=== PATIENT | female | born 1960 | race Hispanic/Latino ===

== ENCOUNTER 2018-02-13 12:49 | Outpatient (CLI) | payer BC | END 2018-02-13 12:50 | disposition home or self-care (01) | LOC: BICMAMMO 12:49 | PROVIDERS: ATTEND Family Medicine | DX: Z12.31 Encounter for screening mammogram for malignant neoplasm of breast (principal); R92.1 Mammographic calcification found on diagnostic imaging of breast | CPT/HCPCS: 77063; 77067 ==

== ENCOUNTER 2018-04-07 13:32 | Outpatient (CLI) | payer BC ==
--- NOTE | 2018-04-07 16:25 | MRI ---
MRI CERVICAL SPINE: Date: 04-07-18 Provided Clinical History: Cervical stenosis, neck pain radiating into bilateral shoulders and arms. FINDINGS: Comparison is made with a 01-20-13. There are post-operative changes of ACDF at C5-6. Cervical alignment appears normal. Regional marrow signal unaffected by metallic susceptibility artifact appears normal. The visualized posterior fossa, cervicomedullary junction, and cervical spine cord demonstrate normal signal and morphology. C2-3: There is no significant central canal or foraminal narrowing. C3-4: There is bilateral facet arthritis and uncinate process hypertrophy as well as a broad based di sc bulge without significant central canal or foraminal narrowing apparent. C4-5: There is no significant central canal or foraminal narrowing apparent. C5-6: There is no significant central canal or foraminal narrowing apparent. C6-7: There is bilateral uncinate process hypertrophy without significant central canal or foraminal narrowing apparent. C7-T1: There is no significant central canal or foraminal narrowing apparent. IMPRESSION: Interval post-operative changes of ACDF at C5-6. No significant central canal or foraminal narrowing apparent. POS: [facility]
--- NOTE | 2018-04-07 16:51 | MRI ---
MRI LUMBAR SPINE WITHOUT CONTRAST: 04/07/18 HISTORY: Lumbar stenosis. COMPARISON: MRI lumbar spine 03/23/13. FINDINGS: There is a T2 hyperintensity of the posterior cortex interpolar right kidney likely a cyst. No hydron ephrosis. The aortoiliac contour is nonaneurysmal. There is no retroperitoneal adenopathy. The conus medullaris terminates at the inferior L1 end plate. Levels are as follows: L1-2: Mild disc desiccation. Moderate facet arthropathy. There is a right paracentral and central pos terior disc osteophyte complex at the annular fissure. There is minimal narrowing of the thecal sac a lthough the spinal canal still measures over 1 cm. There is a hemangioma within the L2 posterior vertebral body. L2-3: Mild circumferential disc bulge. There is associated bilateral paracentral and subforaminal and lateral recess posterior disc osteophyte complexes. Moderate bilateral neural foraminal narrowing. S siena canal measures approximately 8 mm. Moderate to severe left and moderate right sided facet arthr opathy. There is abutment of the left exiting nerve root. Majority of the disc extrusion and posterio r margin of the L2 vertebral body has been resorbed. L3-4: Mild circumferential disc bulge. Mild facet arthropathy. Bilateral subforaminal and lateral rec ess small posterior disc osteophyte complexes. Mild left and no significant right sided neural forami nal narrowing. L4-5: There is a small bilateral subforaminal posterior disc osteophyte complexes. Moderate to severe bilateral facet arthropathy. A subsequent moderate bilateral neural foraminal narrowing. L5-S1: Mild disc desiccation. There is a central annular fissure. Moderate to severe facet arthropath y. There is subsequent moderate bilateral neural foraminal narrowing and degenerative hypertrophic fa cet changes. IMPRESSION: Mild to moderate spondylosis as described above. POS: [facility]
--- NOTE | 2018-04-07 17:08 | MRI ---
MRI OF THE RIGHT KNEE WITH AND WITHOUT IV CONTRAST: DATE: 04/07/2018. PROVIDED CLINICAL HISTORY: Right knee cyst. FINDINGS: Comparison is made with the examination performed 05/04/2013. The cystic structure previously noted involving the right lateral gastrocnemius recess is redemonstra constantino, appearing smaller than on the prior examination. No associated contrast enhancement is seen. T here are no adjacent bone marrow changes. The amount of fluid within the knee joint appears physiolo gic. While this examination was not optimized for assessment for internal derangement, there is no d efinite evidence for such. IMPRESSION: Benign synovial/ganglion cyst is noted at the posterior-lateral aspect of the right knee. POS: [facility]
== END 2018-04-07 13:33 | disposition home or self-care (01) ==
LOC: BICMRI 13:32
PROVIDERS: ATTEND Physical Medicine & Rehabilitation
DX: M48.02 Spinal stenosis, cervical region (principal); M48.061 Spinal stenosis, lumbar region without neurogenic claudication; M25.861 Other specified joint disorders, right knee; M47.896 Other spondylosis, lumbar region; M47.897 Other spondylosis, lumbosacral region; Z98.1 Arthrodesis status
CPT/HCPCS: 72141; 72148

== ENCOUNTER 2018-04-23 10:14 | Outpatient (CLI) | payer BC ==
--- NOTE | 2018-04-23 12:46 | ULT ---
HEPATIC ULTRASOUND: HISTORY: Hepatitis C. FINDINGS: Real-time imaging of the liver shows a normal appearing gallbladder. The common duct is 2 mm. The t echnologist reports a negative ultrasound Mckinney sign. The liver is 15 cm in length and shows no mas s. The spleen measures 8.9 cm. On Doppler evaluation with spectral analysis, a normal flow pattern is shown within the liver. IMPRESSION: Unremarkable hepatic ultrasound. POS: [facility]
== END 2018-04-23 10:15 | disposition home or self-care (01) ==
LOC: BICULT 10:14
PROVIDERS: ATTEND Internal Medicine Gastroenterology
DX: R89.5 Abnormal microbiological findings in specimens from other organs, systems and tissues (principal)
CPT/HCPCS: 76705

== ENCOUNTER 2018-12-23 22:41 | Emergency (ER) | payer BC, SELFPAY ==
[2018-12-23 23:13] LABS: Bilirubin Negative (Negative); Clarity Slightly Cloudy (Clear); Leukocyte Unable to Interpret (Negative); Protein, Urine (Dipstick) 30 mg/dL (Neg-Trace)
[2018-12-23 23:14] LABS: Blood, Urine Unable to Interpret (Negative); Glucose, Urine (Dipstick) Unable to Interpret mg/dL (Negative); Nitrite Unable to Interpret (Negative); Urobilinogen UNABLE TO INTERPRET mg/dL (Less than 2)
[2018-12-23 23:15] LABS: #Basophils 0.2 thou/uL (0.0-0.2); #Eosinphils 0.2 thou/uL (0.0-0.7); #Lymphocytes 4.1 thou/uL (1.20-3.40); #Monocytes 0.9 thou/uL (0.11-0.59); #Neutrophils 6.1 thou/uL (1.40-6.50); %Basophils 1.4 % (0.0-1.0); %Eosinophils 1.5 % (0.0-10.0); %Lymphocytes 35.6 % (21.0-51.0); %Monocytes 8.1 % (0.0-10.0); %Neutrophils 53.4 % (42.0-75.0); Hemoglobin 14.3 g/dL (12.0-16.0); Mean Corpuscular HGB CONC 35.2 g/dL (32.0-36.0); Mean Corpuscular Hemoglobin 32.9 pg (27.0-31.0); Mean Corpuscular Volume 93.4 fL (78.0-98.0); Mean Platelet Volume 10.3 fL (7.4-10.4); Platelet Count 206 thou/uL (130-400); RBC Distribution Width 11.5 % (11.5-14.5); Red Blood Cell (RBC) Count 4.33 mill/uL (4.20-5.40); White Blood Cell (WBC) Count 11.5 thou/uL (4.8-10.8)
[2018-12-23 23:17] LABS: Bacteria/HPF None Seen HPF (None Seen); Squamous Epithelial 0-3 HPF (0-3)
[2018-12-23 23:28] LABS: ALT (SGPT) 14 U/L (8-55); AST (SGOT) 13 U/L (5-34); Albumin 4.3 g/dL (3.5-5.0); Alkaline Phosphatase 143 U/L (40-150); Anion Gap 13 mmol/L (10-20); BUN (Urea Nitrogen) 11 mg/dL (9.8-20.1); Bilirubin, Total 0.2 mg/dL (0.2-1.2); Calc. Creatinine Clearance 0 mL/min (70-130); Calcium 9.8 mg/dL (7.8-10.44); Carbon Dioxide 27 mmol/L (22-29); Chloride 106 mmol/L (98-107); Estimated GFR-MDRD 80; Globulin 3.3 g/dL (2.4-3.5); Glucose 81 mg/dL (70-105); Lipase 15 U/L (8-78); Potassium 3.9 mmol/L (3.5-5.1); Protein, Total 7.6 g/dL (6.0-8.3); Sodium 142 mmol/L (136-145)
--- NOTE | 2018-12-23 23:33 | CT ---
CT Stone Protocol: 12/23/2018 11:04 PM HISTORY: Right flank pain COMPARISON: 10/31/2015 TECHNIQUE: Multiple contiguous axial images were obtained and a CT of the abdomen and pelvis without IV contrast . Coronal reformats were performed. FINDINGS: This examination is limited for the evaluation of solid organs and vascular structures due to the lac k of intravenous contrast. Lower Chest: Calcified granulomas in the lung bases. Abdomen: Liver: within normal limits. Bile Ducts: Normal caliber. Gallbladder: No calcified gallstones. Normal caliber wall. Pancreas: within normal limits. Spleen: within normal limits. Adrenals: within normal limits. Kidneys: within normal limits. Pelvis: Reproductive Organs: Status post hysterectomy. Ureters: within normal limits. Bladder: within normal limits. Bowel: Normal caliber. Normal appendix. Mesenteric Lymph Nodes: No enlarged mesenteric lymph nodes. Peritoneum: No ascites or free air, no fluid collection. Vessels: Atherosclerotic calcifications in the aorta Retroperitoneum: within normal limits. Abdominal Wall: within normal limits. Bones: Degenerative changes in the spine. IMPRESSION: No evidence of acute intraabdominal or pelvic abnormality.
== END 2018-12-24 00:26 | disposition home or self-care (01) ==
LOC: SCSER 22:41
DX: N30.90 Cystitis, unspecified without hematuria (principal); F41.9 Anxiety disorder, unspecified; F32.9 Major depressive disorder, single episode, unspecified; F17.210 Nicotine dependence, cigarettes, uncomplicated; J45.909 Unspecified asthma, uncomplicated; Z79.899 Other long term (current) drug therapy
CPT/HCPCS: 74176; 80053; 81003; 81015; 83690; 85025; 96360

== ENCOUNTER 2019-03-15 12:16 | Outpatient (CLI) | payer BC ==
--- NOTE | 2019-03-15 12:54 | RAD ---
4 views of the lumbar spine: 03/15/2019 COMPARISON: None HISTORY: Lumbar radiculopathy, bilateral lower extremity radiculopathy, right greater than left FINDINGS: The lumbar pedicles are intact on frontal imaging. The neutral lateral examination demonstr ates mild anterolisthesis of L4 on L5 measuring 3-4 mm. There is facet hypertrophy at L3-4, L4-5, and L5-S1. Flexion imaging demonstrates increased anterolisthesis at L4-5, measuring approximately 7 mm. The anterolisthesis at L4-5 decreases to approximately 3-4 mm with extension. No acute osseous abnormality. IMPRESSION: Multilevel lower lumbar spine degenerative change. There is anterolisthesis at L4-5, shima uring up to 7 mm with flexion.
== END 2019-03-15 12:17 | disposition home or self-care (01) ==
LOC: BICRAD 12:16
PROVIDERS: ATTEND Neurological Surgery
DX: M47.26 Other spondylosis with radiculopathy, lumbar region (principal); M43.16 Spondylolisthesis, lumbar region
CPT/HCPCS: 72110

== ENCOUNTER 2019-03-16 12:57 | Outpatient (CLI) | payer BC ==
--- NOTE | 2019-03-16 13:34 | MMO ---
Bilateral MAMMO Bilat Screen DDI+BECKY. CLINICAL HISTORY: Patient is 58 years old and is seen for screening. The patient has no family history of breast cancer. The patient has no personal history of cancer. VIEWS: The views performed were: bilateral craniocaudal with tomosynthesis and bilateral mediolateral oblique with tomosynthesis. FILMS COMPARED: The present examination has been compared to prior imaging studies performed at [facility] on 09/03/2005, 07/25/2010, 02/03/2012 and 02/13/2018. This study has been interpreted with the assistance of computer-aided detection. MAMMOGRAM FINDINGS: There are scattered fibroglandular densities. There are stable benign appearing calcifications seen in both breasts. There are no suspicious masses, suspicious calcifications, or new areas of architectural distortion. IMPRESSION: THERE IS NO MAMMOGRAPHIC EVIDENCE OF MALIGNANCY. A ROUTINE FOLLOW-UP MAMMOGRAM IN 1 YEAR IS RECOMMENDED. THE RESULTS OF THIS EXAM WERE SENT TO THE PATIENT. ACR BI-RADS Category 2 - Benign finding MAMMOGRAPHY NOTE: 1. A negative mammogram report should not delay a biopsy if a dominant of clinically suspicious mass is present. 2. Approximately 10% to 15% of breast cancers are not detected by mammography. 3. Adenosis and dense breasts may obscure an underlying neoplasm. Reported by: JACQUIE MARTIN MD Electonically Signed: [id number]
== END 2019-03-16 12:58 | disposition home or self-care (01) ==
LOC: BICMAMMO 12:57
PROVIDERS: ATTEND Family Medicine
DX: Z12.31 Encounter for screening mammogram for malignant neoplasm of breast (principal)
CPT/HCPCS: 77063; 77067

== ENCOUNTER 2019-05-07 13:00 | Inpatient (IN) | payer BC ==
[2019-06-11 11:28] VITALS: BMI 29.8
[2019-06-14] MEDS ORDERED: Sodium Chloride 0.9% 20 ML ONE (06:14)
[2019-06-14] MEDS ORDERED: Thrombin 5000 UNITS/5 ML VIAL ONE (06:14)
[2019-06-14] MEDS ORDERED: Bupivacaine PF 0.5% 30 ML VIAL ONE (06:14)
[2019-06-14] MEDS ORDERED: Midazolam HCl 2 mg/2 ml Vial ONE (06:43)
[2019-06-14] MEDS ORDERED: Albumin 5% 500 ML ONE (06:44)
[2019-06-14] MEDS ORDERED: Fentanyl 250 MCG/5 ML VIAL ONE (06:44)
[2019-06-14 06:58] LABS: #Basophils 0.1 thou/uL (0.0-0.2); #Eosinphils 0.1 thou/uL (0.0-0.7); #Lymphocytes 4.1 thou/uL (1.20-3.40); #Monocytes 0.7 thou/uL (0.11-0.59); #Neutrophils 5.1 thou/uL (1.40-6.50); %Basophils 0.8 % (0.0-1.0); %Eosinophils 1.4 % (0.0-10.0); %Lymphocytes 40.2 % (21.0-51.0); %Monocytes 6.7 % (0.0-10.0); %Neutrophils 50.9 % (42.0-75.0); Hemoglobin 13.4 g/dL (12.0-16.0); Mean Corpuscular HGB CONC 35.1 g/dL (32.0-36.0); Mean Corpuscular Hemoglobin 33.9 pg (27.0-31.0); Mean Corpuscular Volume 96.5 fL (78.0-98.0); Mean Platelet Volume 9.3 fL (7.4-10.4); Platelet Count 201 thou/uL (130-400); RBC Distribution Width 11.3 % (11.5-14.5); Red Blood Cell (RBC) Count 3.96 mill/uL (4.20-5.40); White Blood Cell (WBC) Count 10.1 thou/uL (4.8-10.8)
[2019-06-14 07:04] LABS: Prothrombin Time 13.3 SEC (12.0-14.7)
[2019-06-14 07:05] LABS: PTT 39.1 SEC (22.9-36.1)
[2019-06-14] MEDS ORDERED: Fentanyl 100 MCG/2 ML VIAL ONE ×3 (11:28→13:41)
[2019-06-14] MEDS ORDERED: PACU-Morphine 4MG/ML VIAL SLOW IVP PRN (11:38)
[2019-06-14] MEDS ORDERED: Morphine Sulfate 2 MG/ML SYRINGE SLOW IVP PRN (11:38)
[2019-06-14] MEDS ORDERED: Ondansetron HCl/PF 4 MG/2 ML Vial IVP PRN (11:38)
[2019-06-14] MEDS ORDERED: HYDROmorphone 2 MG/ML VIAL SLOW IVP PRN (11:38)
[2019-06-14] MEDS ORDERED: Promethazine HCl 25 MG/ML VIAL IM PRN ×2 (11:38→12:22)
[2019-06-14] MEDS ORDERED: Promethazine HCl 25 MG/ML VIAL SLOW IVP PRN (11:38)
[2019-06-14] MEDS ORDERED: HYDROmorphone 2 MG/ML VIAL ONE (12:02)
[2019-06-14] MEDS ORDERED: Bisacodyl 10 MG SUPP PR PRN (12:22)
[2019-06-14] MEDS ORDERED: diphenhydrAMINE 25 MG CAP PO PRN (12:22)
[2019-06-14] MEDS ORDERED: Acetaminophen 325 MG TAB PO PRN (12:22)
[2019-06-14] MEDS ORDERED: Ondansetron PF 4 MG/2 ML Vial IVP PRN (12:22)
[2019-06-14] MEDS ORDERED: Acetaminophen 650 MG Suppository PR PRN (12:22)
[2019-06-14] MEDS ORDERED: Milk Of Magnesia 30 ML UDCUP PO PRN (12:22)
[2019-06-14] MEDS ORDERED: Promethazine HCl 12.5 MG SUPP PR PRN (12:22)
[2019-06-14] MEDS ORDERED: Acetaminophen/Codeine 30-300mg Tablet PO PRN ×2 (12:22)
[2019-06-14] MEDS ORDERED: Morphine 4 MG/ML VIAL SLOW IVP PRN (12:22)
[2019-06-14] MEDS ORDERED: tiZANidine HCl 4 MG TAB PO PRN (12:22)
[2019-06-14] MEDS ORDERED: diphenhydrAMINE 50 MG/ML VIAL IVP PRN (12:22)
[2019-06-14] MEDS ORDERED: Promethazine 25 MG TAB PO PRN (12:22)
[2019-06-14] MEDS ORDERED: ALPRAZolam 0.25 MG TAB PO PRN (12:24)
[2019-06-14] MEDS ORDERED: PROVENTIL INHALER 6.7 G (200 INHALATIONS) INH PRN (12:24)
[2019-06-14] MEDS ORDERED: Scopolamine 1.5 mg/72 hour Patch TD SCH (12:30)
[2019-06-14] MEDS ORDERED: Polyethylene Glycol 3350 17 GM Packet PO PRN (12:34)
[2019-06-14] MEDS ORDERED: Clindamycin/D5W 900 mg/50 ml Premix Bag ONE (12:41)
[2019-06-14] MEDS: Clindamycin/D5W 900 MG in Premix Bag 1 BAG IVPB SCH ×2 (12:48→20:23)
[2019-06-14] MEDS ORDERED: Ondansetron PF 4 MG/2 ML Vial ONE (13:03)
[2019-06-14] MEDS ORDERED: Vecuronium 10 MG VIAL ONE (13:03)
[2019-06-14] MEDS ORDERED: PROPOFOL 200 MG/20 ML VIAL ONE (13:03)
[2019-06-14] MEDS ORDERED: Glycopyrrolate 0.2 MG/ML 5 ML SYRINGE ONE (13:03)
[2019-06-14] MEDS ORDERED: Lidocaine 1% PF 5 ML VIAL ONE (13:03)
[2019-06-14] MEDS ORDERED: Rocuronium Bromide 10 MG/ML (10ML VIAL) ONE (13:03)
[2019-06-14] MEDS ORDERED: Dexamethasone 20 MG/5 ML VIAL ONE (13:03)
--- NOTE | 2019-06-14 14:41 | OP ---
DATE OF PROCEDURE: 06/14/2019 GREASER AND OILER: None. PREOPERATIVE INDICATION: Treat pain and prevent neurological deterioration. PREOPERATIVE DIAGNOSES: Upper lumbar stenosis with neurogenic claudication and unstable spondylolisthesis L4-L5 with intermittent L5 radiculopathy and instability pain. POSTOPERATIVE DIAGNOSES: Upper lumbar stenosis with neurogenic claudication and unstable spondylolisthesis L4-L5 with intermittent L5 radiculopathy and instability pain. PROCEDURES PERFORMED: Decompressive laminectomy, medial facetectomy, foraminotomy, L1-L2, L2-L3, and L4-L5, complete facetectomy L4-L5, transforaminal lumbar interbody arthrodesis L4-L5, placement of intervertebral biomechanical device L4-L5, pedicle screw and crystal instrumentation L4-L5, posterolateral arthrodesis L4-L5, local morselized autograft and morselized allograft. PREOPERATIVE MEDICATIONS: Ancef 2 g IV. DRAIN NUMBER: 1. DRAIN TYPE: 10-Chinese Hermilo. DESCRIPTION OF PROCEDURE: The patient was brought to the operating room. General endotracheal anesthesia was induced. The patient was carefully positioned on the Francisco frame with the chest and hips supported by the appropriate attachments for the Francisco frame. A lateral fluoro radiograph was used to plan our incision. The lumbar skin was sterilely prepped and draped. We opened a midline incision with a 10 blade knife and controlled bleeding with bipolar and monopolar cautery. We used the monopolar cautery to dissect through subcutaneous tissues to the thoracodorsal fascia. We incised that fascia in the midline and we reflected the paraspinal muscles off the spinous process and lamina from L1 through L5. A lateral fluoro radiograph was used to identify the levels upon which we were operating. We then used an Adson rongeur to remove the spinous process of L1, L2, and L3, and the inferior portion of T12 was removed as well. Kerrison rongeurs were used to fashion a laminectomy at L1-L2 and L2-L3 and we performed medial facetectomies to decompress the lateral recesses with the L2 and L3 nerve roots. We were traversing the disk space and we performed foraminotomies over the nerve roots as they exited the spine. Once our decompression was secured, we waxed the bony edges and turned our attention to L4-L5. The self-retaining retractor was moved inferiorly. We removed the spinous process of L4 and L5 and fashioned a laminectomy with Kerrison rongeur. When we were lateral to the dura, we turned our attention to arthrodesis. We performed a complete facetectomy at L4-L5 on the right side. With the facet gone, we could access the intervertebral space through the foramen. We incised the disk space and removed disk contents using curettes and rongeurs. We used curettes to prepare the endplates for grafting and a bone rasp to measure the height of the interspace. This measured 11 mm. An 11-mm PEEK intervertebral graft was brought into the field. Our laminectomy bone was cleaned of soft tissue attachments, morcellized and added to demineralized bone matrix to form a fusion substrate, that substrate was packed into the center of the PEEK device and the device advanced into the interspace under radiographic guidance to the appropriate depth. We turned our attention to pedicle screw placement. Using bony anatomic landmarks, palpation of the medial portion of the pedicles, and a lateral fluoro radiograph as our guide, we chose entry points for pedicle screws at L4 and L5 bilaterally. We placed our ford at the entry point and then, we advanced the trajectories through the pedicles with a bone awl. We tapped each trajectory with a threaded tap and probed it with a ball probe. We found each trajectory completely encased in bone. We placed 6.5 x 45 mm screws into the pedicles of L4 and L5 bilaterally. An image set was generated with our isocentric C-arm. This confirmed adequate positioning of our pedicle screw instrumentation. We then irrigated copiously with bacitracin irrigation. We placed 45 mm rods down into the screw heads and we tightened caps over the rods. We compressed across the interspace before final tightening to keep our interbody graft in place. Using a counter-torque mechanism, we ensured adequate tightness. We irrigated once again in the lateral recesses. We decorticated the transverse process of L4 and L5 bilaterally and over the decorticated bone, we left our demineralized bone matrix and morselized autograft as our posterior lateral fusion substrate. We irrigated the center of the canal. We infused local anesthetic into the paraspinal muscles. We tunneled the drain inferiorly through a separate stab incision. We closed the wound in anatomical layers of the drain. We applied a sterile dressing. This was a clean case, no contamination. Job ID: [id number]
[2019-06-14] MEDS: HYDROcodone/Acetaminophen 10/325 mg Tablet PO PRN ×2 (16:06→20:21)
[2019-06-14] MEDS: Sodium Chloride 0.9% 1,000 ML IV SCH (16:09)
[2019-06-14] MEDS: Morphine 2 MG/ML SYRINGE SLOW IVP PRN (18:56)
[2019-06-14] MEDS: Senokot S 8.6-50 MG TAB PO SCH (20:20)
[2019-06-15] MEDS: HYDROcodone/Acetaminophen 10/325 mg Tablet PO PRN ×4 (00:07→17:15)
[2019-06-15] MEDS: Sodium Chloride 0.9% 1,000 ML IV SCH ×2 (03:20→14:27)
[2019-06-15] MEDS: Clindamycin/D5W 900 MG in Premix Bag 1 BAG IVPB SCH ×3 (04:46→20:02)
--- NOTE | 2019-06-15 06:42 | PDOC.HOSPP ---
- Subjective Encounter Date: 06/14/19 Encounter Time: 13:00 Subjective: Patient seen and examined in PACU. Somnolent. No new complaints. - Objective Vital Signs & Weight: Vital Signs (12 hours) Temp Pulse Resp BP Pulse Ox 06/15/19 03:45 97.9 F 78 18 100/62 98 06/14/19 23:24 97.6 F 92 18 125/72 98 06/14/19 20:32 97.9 F 98 18 110/69 98 Weight Weight 158 lb I&O: 06/13/19 06/14/19 06/15/19 06:59 06:59 06:59 Intake Total 800 Output Total 125 Balance 675 Result Diagrams: 06/14/19 06:43 Additional Labs: Laboratory Tests 12/30/18 15:04 Creatinine 0.78 Estimated GFR (MDRD) 76 Triglycerides 222 H EKG Reviewed by me: Yes (Tele - SR) Hospitalist ROS - Review of Systems Respiratory: denies: cough, dry, shortness of breath, hemoptysis, SOB with excertion, pleuritic pain, sputum, wheezing, other Cardiovascular: denies: chest pain, palpitations, orthopnea, paroxysmal noc. dyspnea, edema, light headedness, other - Medication Medications: Active Medications Generic Name Dose Route Start Last Admin Trade Name Freq PRN Reason Stop Dose Admin Hydrocodone Bitart/Acetaminophen 1 tab 06/14/19 12:22 06/15/19 04:46 [place] 10/325 PO 1 tab Q4H PRN Administration Mild Pain (1-3) Hydrocodone Bitart/Acetaminophen 2 tab 06/14/19 12:22 06/15/19 00:07 [place] 10/325 PO 2 tab Q4H PRN Administration Moderate Pain (4-6) Clindamycin Phosphate/Dextrose 50 mls @ 100 mls/hr 06/14/19 13:00 06/15/19 04 :46 900 mg/ Device IVPB 50 mls 0500,1300,2100 NATA Administration Sodium Chloride 1,000 mls @ 75 mls/hr 06/14/19 12:30 06/15/19 03:20 Normal Saline 0.9% IV Not Given .[id number] NATA Morphine Sulfate 2 mg 06/14/19 12:22 06/14/19 18:56 Morphine SLOW IVP 2 mg Q1H PRN Administration Moderate Breakthrough Pain Scopolamine 1.5 mg 06/14/19 12:30 06/14/19 14:33 Transderm Scop TD Not Given Q3D NATA Senna/Docusate Sodium 1 tab 06/14/19 21:00 06/14/19 20:20 Senokot S PO 1 tab BID NATA Administration - Exam General Appearance: NAD Heart: RRR, no gallops Respiratory: CTAB, no rales Gastrointestinal: soft, non-tender, normal bowel sounds Extremities: no edema Hosp A/P - Plan DVT proph w/SCDs DJD Dyslipidemia Anxiety Tobacco dep Chronic back pain CKD 2 PLAN: On chronic steroids Xanax PRN Will follow PRN PT/OT Cont supportive care
--- NOTE | 2019-06-15 07:47 | PRG ---
DATE OF SERVICE: 06/15/2019 I saw Jennifer Dimas on rounds today. She feels good after surgery. She got out of bed yesterday multiple times to go to the bathroom and walking and did not produce the same pain she had before surgery. The back is sore, but there is no radiating leg issue and the instability pain seemed better. Overnight, the T-max was 97.9 degrees Fahrenheit. Her blood pressures have been running between 100 and 120. Her drain is put out 125 mL since surgery. There is good neurological function in the lower extremities. They will mobilize Ms. Dimas. We will watch her drain output and once it dips below 5 mL an hour, it can be removed. Anticipated discharge tomorrow. Job ID: [id number]
[2019-06-15] MEDS: Senokot S 8.6-50 MG TAB PO SCH ×2 (08:39→20:01)
[2019-06-15] MEDS: Morphine 2 MG/ML SYRINGE SLOW IVP PRN (14:03)
[2019-06-16] MEDS: HYDROcodone/Acetaminophen 10/325 mg Tablet PO PRN ×4 (01:21→14:19)
[2019-06-16] MEDS: Sodium Chloride 0.9% 1,000 ML IV SCH (05:50)
--- NOTE | 2019-06-16 07:13 | PRG ---
DATE OF SERVICE: 06/16/2019 I saw Ms. Dimas in her hospital room this morning. She is 2 days out from decompression and fusion of the lumbar spine. She had a long segment decompression and a one level fusion for unstable listhesis. Her back hurts and she has some soreness from positioning on the operating table, but the radiating leg pain is gone. She feels the pain is different from her instability pain and she is optimistic. She will get better. The drain was removed yesterday after the output tapered off. Among the vital signs, I do not find any fevers. Her blood pressures have been in the 90s to 110s. There is good neurological function in the lower extremities. Ms. Dimas may need another day to get her pain under better control. When she is walking and independent for all her activities of daily living, she can be discharged. That can be as soon as today if she meets criteria. Job ID: [id number]
[2019-06-16] MEDS: Senokot S 8.6-50 MG TAB PO SCH (09:31)
[2019-06-16 11:24] VITALS: BP 113/55; TEMP 98
--- NOTE | 2019-06-18 12:08 | HP ---
REASON FOR ADMISSION: "My back is not getting any better and I would like surgery." HISTORY OF PRESENT ILLNESS: Ms. Dimas is known to our [facility]surgery [facility]. In 2013, Ms. Dimas had a C5-C6 ACDF. She has been following with us for a number of years for low back and leg pain. We have been trying to manage her with epidural steroid injections, facet injections, and greater trochanteric bursa injections. None of this has made a permanent difference. Recent upright plain films suggested some unexpected instability at L4-L5 and prior MR imaging showed a canal stenosis at L1 through L3. After number of years of injections, physical therapy, activity modification, and analgesic use, Ms. Dimas is interested in an attempt at surgical intervention. We have had long discussions about this over a number of months and she is here to proceed with the operation. PAST MEDICAL HISTORY: Attention deficit disorder, anxiety disorder, onychomycosis, asthma, rheumatoid arthritis, diverticulitis, , stress and urge urinary incontinence, chronic hepatitis C, sacroiliitis, lumbar spondylolisthesis, low back pain. ADMISSION MEDICATIONS: 1. Vitamin . 2. Prednisone. 3. Multivitamins. 4. [place]. 5. Sulfasalazine. 6. Xanax. 7. Fluticasone propionate. 8. Adderall. 9. Nitrofurantoin. 10. Albuterol. ALLERGIES: INCLUDE BACTRIM, CIPRO, LEXAPRO, ZOLOFT, CELEXA, PROZAC, AMITRIPTYLINE. PAST SURGICAL HISTORY: Cardiac catheterization, carpal tunnel surgery, hysterectomy, tonsillectomy, bladder suspension, ACDF, and tubal ligation. FAMILY HISTORY: Ms. Dimas does not have a strong family history of premature coronary artery disease. There is no family history of anesthetic complications. SOCIAL HISTORY: Ms. Dimas is and she is to smoke cigarettes daily. She denies alcohol abuse. She denies illicit drug use. REVIEW OF SYMPTOMS: Otherwise negative. PHYSICAL EXAMINATION: Ms. Dimas' cranial nerves are working normally. Her cognitive function is normal. There is no dysphasia. Her speech is fluent. On motor examination of the lower extremities, I do not find any loss of strength in the iliopsoas, the quadriceps, the hamstrings, the anterior tib, the EHL, the gastroc, and the toe flexors. On sensory examination, there is no sensory loss at L1, L2, L3, L4, L5, or S1. Her spine examination shows a midline tenderness of the lumbosacral junction. There is some tenderness over the right greater than left sacroiliac joint and the right greater than left greater trochanteric bursa. IMAGING FINDINGS: There was moderate stenosis at L1-L2 and L2-L3 and mild lateral recess disease at L4-L5. Flexion-extension x-rays in the standing position shows an L4-L5 spondylolisthesis develops, standing that was not present on the MRI scan. In flexion-extension, it is unstable. ASSESSMENT: 1. Chronic back pain with unstable spondylolisthesis at L4-L5. 2. Moderate stenosis at L1-L3. I had a long discussion with Ms. Dimas over a number of months. I told her that some of her discomfort is likely coming from her back, but some of it is not. Operative intervention to decompress from L1-L3 and to stabilize the L4-L5 segment is the offer and she would like to proceed. Informed Consent: I discussed indications, risks, benefits, alternatives, expected outcomes from surgery. The risks we discussed included, but were not limited to, bleeding, infection, CSF leak, nerve damage, screw mis-positioning, weakness, incontinence, cauda equina injury, arachnoiditis, paralysis, ventilator dependence, wheelchair dependence, loss of vision, hardware complications, and cardiopulmonary complications of anesthesia including . Long-term complications we discussed included, but were not limited to, degeneration of the surrounding disks and need for future surgery as well as instrumentation failure. She understands those risks and wants to proceed. We will take her to the operating room today. Job ID: [id number]
== END 2019-06-16 15:05 | disposition home or self-care (01) | DRG 455 ==
LOC: EDSTATUS 05-18 08:41 → SURG A 06-14 05:36
PROVIDERS: ADMIT Neurological Surgery; ATTEND Neurological Surgery
PROC: 0SG10AJ Fusion of 2 or more Lumbar Vertebral Joints with Interbody Fusion Device, Posterior Approach, Anterior Column, Open Approach (ICD-10-PCS; principal; 2019-06-14)
PROC: 0SG0071 Fusion of Lumbar Vertebral Joint with Autologous Tissue Substitute, Posterior Approach, Posterior Column, Open Approach (ICD-10-PCS; 2019-06-14)
PROC: 0SB20ZZ Excision of Lumbar Vertebral Disc, Open Approach (ICD-10-PCS; 2019-06-14)
PROC: 01NB0ZZ Release Lumbar Nerve, Open Approach (ICD-10-PCS; 2019-06-14)
DX: M43.16 Spondylolisthesis, lumbar region (principal); M48.062 Spinal stenosis, lumbar region with neurogenic claudication; M54.16 Radiculopathy, lumbar region; J45.909 Unspecified asthma, uncomplicated; K58.9 Irritable bowel syndrome, unspecified; E78.5 Hyperlipidemia, unspecified; N18.2 Chronic kidney disease, stage 2 (mild); F41.9 Anxiety disorder, unspecified; F32.9 Major depressive disorder, single episode, unspecified; Z79.51 Long term (current) use of inhaled steroids; Z87.891 Personal history of nicotine dependence; Z90.710 Acquired absence of both cervix and uterus; Z88.1 Allergy status to other antibiotic agents; Z88.2 Allergy status to sulfonamides; Z79.899 Other long term (current) drug therapy
CPT/HCPCS: 76000; 85025; 85610; 85730; C1713; C1768; J0131; J0690; J1170; J2250; J2270; J2405; J3010; J3370; J3490; J7620; P9045; S0020

== ENCOUNTER 2019-08-05 15:40 | Outpatient (CLI) | payer BC ==
--- NOTE | 2019-08-05 16:48 | RAD ---
TWO VIEWS LUMBOSACRAL SPINE 08/05/19 COMPARISON: 03/15/19. HISTORY: Lumbar stenosis with claudication. FINDINGS: Two views of the lumbosacral spine shows the patient to have undergone interval fusion of L4 and L5 w ith bilateral pedicle screws. A disc spacer is seen in good position within the disc space. The vert ebral bodies demonstrate normal alignment without subluxation. Bilateral laminectomies have been perf ormed from L1 through L4. IMPRESSION: Postsurgical changes of the lumbar spine without evidence of complication. POS: [facility]
== END 2019-08-05 15:41 | disposition home or self-care (01) ==
LOC: BICRAD 15:40
PROVIDERS: ATTEND Neurological Surgery
DX: M48.062 Spinal stenosis, lumbar region with neurogenic claudication (principal); Z98.890 Other specified postprocedural states
CPT/HCPCS: 72100

== ENCOUNTER 2020-04-26 12:16 | Outpatient (CLI) | payer BC ==
[2020-04-26] MEDS ORDERED: Magnevist 469MG/ML 20 ML VIAL ONE ×2 (13:46)
--- NOTE | 2020-04-26 14:16 | MRI ---
MRI of thecervical spine: 04/26/2020 COMPARISON:04/07/2018 HISTORY:Neck pain TECHNIQUE: Multiplanar multisequence MR imaging of thecervical spine without contrast Findings:Anterior discectomy and fusion hardware is present at the C5-6 level. The sagittal STIR imaging demonstrates no focal area of osseous marrow edema. No cervical spine anter olisthesis or retrolisthesis is noted. C2-3: Mild left facet hypertrophy with no significant central canal or neural foraminal stenosis. C3-4: Mild bilateral facet hypertrophy with mild left neural foraminal stenosis. No central canal or right neural foraminal stenosis. C4-5: There is disc desiccation and mild disc bulge with no significant central canal or neural len inal stenosis. C5-C6: Artifact limits detailed assessment. No discrete central canal or neural foraminal stenosis. 6 7: There is disc space narrowing with disc desiccation and mild disc bulge. Mild bilateral facet hy pertrophy. No significant central canal or neural foraminal stenosis C7-T1: Bilateral facet hypertrophy with mild bilateral neural foraminal stenosis. No significant barbie l stenosis. There is no focal area of abnormal signal intensity identified within the cervical cord. IMPRESSION:Cervical spine postoperative and degenerative change as detailed above.
--- NOTE | 2020-04-26 15:02 | MRI ---
MRI of thelumbar spine with and without contrast: 04/26/2020 COMPARISON:None available HISTORY:Back pain, bilateral lower extremity radiculopathy, prior lumbar spine surgery TECHNIQUE: Multiplanar multisequence MR imaging of thelumbar spine with and without contrast Findings:There is posterior fusion hardware at the L4-5 level. There is increased STIR signal involvi ng the posterior paraspinal soft tissues at the L3, L4, and L5 levels, likely on the basis of post operative change. On the basis of 5 lumbar type vertebral bodies, the conus medullaris terminates at the L1 level. No significant anterolisthesis or retrolisthesis is seen within the lumbar spine. T12-L1: Disc space narrowing with disc desiccation and mild disc bulge. Bilateral facet hypertrophy. No significant central canal or neural foraminal stenosis. The patient appears status post bilateral laminectomy. L1-2: There is disc space narrowing with disc desiccation. There is mild bilateral facet hypertrophy with mild bilateral neural foraminal stenosis. There is a right paracentral disc herniation with inferior migration measuring approximately 6 mm, le ading to no significant central canal stenosis. The patient appears status post bilateral laminectomy at this level. L2-3: There is disc space narrowing with disc desiccation and mild disc bulge. There is bilateral fac et hypertrophy with mild bilateral neural foraminal stenosis, left greater than right. No significant central canal stenosis is seen. The patient is status post bilateral laminectomy. L3-4: There is disc space narrowing with disc desiccation and mild disc bulge. The patient is status post bilateral laminectomy with no significant central canal stenosis noted. There is bilateral facet hypertrophy with moderate bilateral neural foraminal stenosis. L4-5: Bilateral laminectomy changes are present. No central canal stenosis. There is disc desiccation and bilateral facet hypertrophy with mild bilateral neural foraminal stenosis. L5-S1: Bilateral facet hypertrophy present with mild bilateral neural foraminal stenosis. No signific ant central canal stenosis. The visualized retroperitoneal structures demonstrate a T2 hyperintense lesion within the medial aspe ct of the right kidney measuring 1.1 cm, consistent with a cyst. The postcontrast imaging demonstrates no abnormal enhancement involving the contents of the thecal sa c. Evaluation of the postcontrast imaging is slightly limited at the level of the postoperative hardware secondary to artifact. There is enhancement of the posterior paraspinal soft tissues at the L3 and L4 level suggesting postoperative scar. IMPRESSION:Postoperative and degenerative changes of the lumbar spine as detailed above.
--- NOTE | 2020-04-26 16:34 | MRI ---
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 Patie nt complains of anterolateral right knee pain TECHNIQUE: Multiplanar multisequence MR images were obtained of the right knee with and without contr ast utilizing 15 cc of MultiHance. FINDINGS: A multiloculated T2 hyperintense, T1 hypointense lesion with within the lateral head of the gastrocnemius, along the posterior lateral margin of the upper right knee, is slightly smaller in size now measuring 17.4 x 13.4 mm where previously measured 18 x 14 mm. There is mild internal enhanc ement of the lesion on the postcontrast series likely related to synovium. No abnormal lymphadenopathy is evident. No joint effusion is noted. No full-thickness articular cartilage defect is evident. The lateral and medial menisci are intact. The septum pellucidum, MCL and LCLC are intact. Extensor mechanism is intact. There is a very tiny semimembranosus medial gastrocnemius popli teal cyst. IMPRESSION: Slightly smaller multiloculated ganglion cyst, arising within the lateral head of the gas trocnemius
== END 2020-04-26 12:17 | disposition home or self-care (01) ==
LOC: BICMRI 12:16
PROVIDERS: ATTEND Physical Medicine & Rehabilitation
DX: M54.2 Cervicalgia (principal); M48.07 Spinal stenosis, lumbosacral region; M05.69 Rheumatoid arthritis of multiple sites with involvement of other organs and systems; M25.561 Pain in right knee; M65.30 Trigger finger, unspecified finger; M25.579 Pain in unspecified ankle and joints of unspecified foot; M67.461 Ganglion, right knee; M47.816 Spondylosis without myelopathy or radiculopathy, lumbar region; Z98.1 Arthrodesis status; M47.812 Spondylosis without myelopathy or radiculopathy, cervical region
CPT/HCPCS: 72141; 72158; 82565; A9579

== ENCOUNTER 2020-06-07 23:04 | Emergency (ER) | payer BC ==
--- NOTE | 2020-06-07 23:58 | RAD ---
Portable frontal chest radiograph: 06/07/2020 COMPARISON: 05/02/2018 HISTORY: Pain FINDINGS: Lungs are clear. Heart and mediastinal contours appear within normal limits. IMPRESSION: No acute findings.
[2020-06-08 00:11] LABS: Bilirubin Negative (Negative); Blood, Urine Negative (Negative); Clarity Clear (Clear); Glucose, Urine (Dipstick) Normal (Negative); Ketone, Urine Negative (Negative); Leukocyte Negative Leu/uL (Negative); Nitrite Negative (Negative); Protein, Urine (Dipstick) Negative (Neg-Trace); Specific Gravity, Urine 1.008 (1.002-1.036); Urobilinogen Normal mg/dL (Less than 2); pH, Urine 6.5 (5.0-9.0)
[2020-06-08 00:12] LABS: #Basophils 0.2 thou/uL (0.0-0.2); #Eosinphils 0.1 thou/uL (0.0-0.7); #Lymphocytes 4.4 thou/uL (1.20-3.40); #Monocytes 0.9 thou/uL (0.11-0.59); #Neutrophils 7.7 thou/uL (1.40-6.50); %Basophils 1.4 % (0.0-1.0); %Eosinophils 0.7 % (0.0-10.0); %Lymphocytes 33.2 % (21.0-51.0); %Monocytes 6.5 % (0.0-10.0); %Neutrophils 58.3 % (42.0-75.0); Mean Corpuscular HGB CONC 34.8 g/dL (32.0-36.0); Mean Corpuscular Hemoglobin 33.6 pg (27.0-31.0); Mean Corpuscular Volume 96.4 fL (78.0-98.0); Mean Platelet Volume 9.1 fL (7.4-10.4); Platelet Count 216 thou/uL (130-400); RBC Distribution Width 12.1 % (11.5-14.5); Red Blood Cell (RBC) Count 4.76 mill/uL (4.20-5.40); White Blood Cell (WBC) Count 13.3 thou/uL (4.8-10.8)
[2020-06-08 00:34] LABS: ALT (SGPT) 16 U/L (8-55); AST (SGOT) 17 U/L (5-34); Albumin 4.9 g/dL (3.5-5.0); Alkaline Phosphatase 170 U/L (40-110); Anion Gap 17 mmol/L (10-20); BUN (Urea Nitrogen) 19 mg/dL (9.8-20.1); Bilirubin, Total 0.2 mg/dL (0.2-1.2); Calc. Creatinine Clearance 0 mL/min (70-130); Calcium 9.9 mg/dL (7.8-10.44); Carbon Dioxide 26 mmol/L (22-29); Chloride 99 mmol/L (98-107); Globulin 4.1 g/dL (2.4-3.5); Glucose 120 mg/dL (70-105); Lipase 26 U/L (8-78); Potassium 3.4 mmol/L (3.5-5.1); Sodium 139 mmol/L (136-145)
[2020-06-08] MEDS ORDERED: Mag-Al 1200 mg/1200 mg/30 ML UDCUP ONE (00:52)
[2020-06-08] MEDS ORDERED: Lidocaine Viscous Sol 2% 15 ml UD Cup ONE (00:52)
--- NOTE | 2020-06-08 08:26 | CT ---
PRELIMINARY REPORT/[facility]/EMERGENCY AFTER HOURS PROCEDURE EXAM: CT Abdomen and Pelvis with Intravenous Contrast CLINICAL HISTORY: Pt brought to ER with complaint of SOB. Pt states, "I feel that I have air in my abdomen." Pt also complains of HTN 184/110 at home. TECHNIQUE: Axial computed tomography images of the abdomen and pelvis with intravenous contrast. CONTRAST: With; ISOVUE 370,70mL COMPARISON: None provided. FINDINGS: LUNG BASES: Bilateral lung bases are clear. No pleural effusion. Visualized heart and pericardium appear normal. LIVER: Unremarkable. GALLBLADDER AND BILE DUCTS: Unremarkable. No calcified stone. No ductal dilation. PANCREAS: Unremarkable. SPLEEN: Unremarkable. ADRENAL GLANDS: Unremarkable. KIDNEYS, URETERS, AND BLADDER: There is a 13 mm indeterminate hypodensity in the medial cortex of the right kidney. This is most lik bryan a cyst. Kidneys, ureters, and bladder are otherwise normal. STOMACH AND BOWEL: No obstruction. No wall thickening. No CT evidence of colitis or acute diverticulitis. APPENDIX: No CT evidence for appendicitis. PERITONEUM: No free intraperitoneal fluid. No free intraperitoneal air. LYMPH NODES: No lymphadenopathy. REPRODUCTIVE: Hysterectomy. No adnexal mass. VASCULATURE: No aortic aneurysm. BONES: T12-L5 laminectomies with posterior and interbody at the L4-5 level. No evidence of acute complicatio n. ABDOMINAL WALL AND SOFT TISSUES: Unremarkable. IMPRESSION: 1. No acute intra-abdominal or pelvic abnormality. 2. Indeterminate 13 mm hypodense mass of the right kidney. Nonemergent follow-up evaluation is quintin mmended. Imaging options may include ultrasound or multiphase renal protocol CT or MRI. ELECTRONICALLY SIGNED BY: Prasanth Aggarwal M.D. Jun 08, 2020 2:43:21 AM [employer] This report is intended for review by the ordering physician only, in accordance of law. If you recei ve this report in error, please call [facility] at [phone]. FINAL REPORT EXAM: CT ABDOMEN AND PELVIS HISTORY: Pain. COMPARISON: None. Procedure: Multiple contiguous axial images were obtained and a CT of the abdomen and pelvis with IV contrast. C oronal reformats were performed. FINDINGS: Lower Chest: within normal limits. Vessels: Normal caliber aorta Heart: Normal heart Abdomen: Portal vein:Patent Gallbladder: No calcified gallstones. Normal caliber wall. Liver: within normal limits. Pancreas: within normal limits. Spleen: within normal limits. Adrenals: within normal limits. Kidneys: Symmetric enhancement. No obstructive uropathy. Hypodensity in the right renal cortex, maria dolores tible with a complex cyst. Peritoneum: No ascites or free air, no fluid collection. Bowel: Limited evaluation due to the lack of oral contrast administration. No evidence of bowel obstr uction. Ileocecal junction is unremarkable. Normal caliber appendix. Scattered fecal material in a nondistended, nondilated colon. Diverticulosis, without evidence of diverticulitis Mesentery and Retroperitoneum: No enlarged mesenteric or retroperitoneal lymph nodes. Abdominal Wall: within normal limits. Pelvis: Reproductive Organs: Reproductive organs are unremarkable. Pelvis: No mass, lymphadenopathy, free air or free fluid. Bladder: within normal limits. Bones: within normal limits. IMPRESSION: 1. This report is in agreement with initial report by [facility]. 2. No evidence of acute intraabdominal\\pelvic abnormality. Transcribed Date/Time: 06/08/2020 8:30 AM
--- NOTE | 2020-06-10 13:29 | EKG ---
Test Reason : Blood Pressure : / mmHG Vent. Rate : 071 BPM Atrial Rate : 071 BPM P-R Int : 132 ms QRS Dur : 084 ms QT Int : 408 ms P-R-T Axes : 073 070 035 degrees QTc Int : 443 ms Normal sinus rhythm ST abnormality, possible digitalis effect Abnormal ECG Confirmed by GENARO CUI M.D. ([id number]), development editor PARAMJIT VOSS ([id number]) on 06/10/2020 1:29:42 PM Referred By: Confirmed By:GENARO CUI M.D.
== END 2020-06-08 03:04 | disposition home or self-care (01) ==
LOC: ERS 23:04
DX: N28.1 Cyst of kidney, acquired (principal); R06.02 Shortness of breath; F41.9 Anxiety disorder, unspecified; F32.9 Major depressive disorder, single episode, unspecified; F98.8 Other specified behavioral and emotional disorders with onset usually occurring in childhood and adolescence; F17.210 Nicotine dependence, cigarettes, uncomplicated; Z79.899 Other long term (current) drug therapy
CPT/HCPCS: 71045; 74177; 80053; 81003; 83690; 84484; 85025; 93005

== ENCOUNTER 2021-02-24 23:59 | Emergency (ER) | payer BC ==
[2021-02-25 00:33] LABS: #Basophils 0.1 thou/uL (0.0-0.2); #Eosinphils 0.2 thou/uL (0.0-0.7); #Lymphocytes 4.3 thou/uL (1.20-3.40); #Monocytes 0.8 thou/uL (0.11-0.59); #Neutrophils 4.6 thou/uL (1.40-6.50); %Basophils 1.1 % (0.0-1.0); %Eosinophils 1.9 % (0.0-10.0); %Lymphocytes 42.9 % (21.0-51.0); %Monocytes 7.6 % (0.0-10.0); %Neutrophils 46.5 % (42.0-75.0); Hemoglobin 13.5 g/dL (12.0-16.0); Mean Corpuscular HGB CONC 35.8 g/dL (32.0-36.0); Mean Corpuscular Hemoglobin 35.2 pg (27.0-31.0); Mean Corpuscular Volume 98.3 fL (78.0-98.0); Platelet Count 205 thou/uL (130-400); RBC Distribution Width 11.5 % (11.5-14.5); Red Blood Cell (RBC) Count 3.84 mill/uL (4.20-5.40); White Blood Cell (WBC) Count 9.9 thou/uL (4.8-10.8)
[2021-02-25 00:57] LABS: ALT (SGPT) 15 U/L (8-55); AST (SGOT) 14 U/L (5-34); Albumin 3.7 g/dL (3.4-4.8); Alkaline Phosphatase 121 U/L (40-110); Anion Gap 10 mmol/L (10-20); BUN (Urea Nitrogen) 13 mg/dL (9.8-20.1); Bilirubin, Total 0.2 mg/dL (0.2-1.2); Calc. Creatinine Clearance 0 mL/min (70-130); Calcium 9.4 mg/dL (7.8-10.44); Carbon Dioxide 27 mmol/L (23-31); Chloride 107 mmol/L (98-107); Globulin 3.1 g/dL (2.4-3.5); Glucose 99 mg/dL (80-115); Potassium 4.6 mmol/L (3.5-5.1); Protein, Total 6.8 g/dL (5.8-8.1); Sodium 139 mmol/L (136-145)
[2021-02-25 02:58] LABS: Bacteria/HPF None Seen HPF (None Seen); Bilirubin Negative (Negative); Blood, Urine 1+ (Negative); Clarity Clear (Clear); Glucose, Urine (Dipstick) Normal (Negative); Ketone, Urine Negative (Negative); Leukocyte Negative Leu/uL (Negative); Nitrite Negative (Negative); Protein, Urine (Dipstick) Negative (Neg-Trace); RBC/HPF 0-3 HPF (0-3); Specific Gravity, Urine 1.014 (1.002-1.036); Squamous Epithelial 0-3 HPF (0-3); Urobilinogen Normal mg/dL (Less than 2); WBC/HPF None Seen HPF (0-3); pH, Urine 5.5 (5.0-9.0)
[2021-02-25 03:27] LABS: Troponin I Less than 0.010 ng/mL (< 0.028)
[2021-02-25 19:54] LABS: SARS-CoV-2 PCR by NAA Not Detected (NotDetected)
== END 2021-02-25 04:00 | disposition home or self-care (01) ==
LOC: ERS 23:59
DX: B34.9 Viral infection, unspecified (principal); R31.9 Hematuria, unspecified; I10 Essential (primary) hypertension; J45.909 Unspecified asthma, uncomplicated; F17.210 Nicotine dependence, cigarettes, uncomplicated; Z20.822 Contact with and (suspected) exposure to COVID-19; Z79.899 Other long term (current) drug therapy; Z86.73 Personal history of transient ischemic attack (TIA), and cerebral infarction without residual deficits
CPT/HCPCS: 36415; 71045; 80053; 81003; 81015; 84484; 85025; 93005; U0003; U0005

== ENCOUNTER 2021-04-15 17:41 | Observation (INO) | payer BC ==
[2021-04-15 18:07] LABS: #Basophils 0.1 thou/uL (0.0-0.2); #Eosinphils 0.1 thou/uL (0.0-0.7); #Lymphocytes 3.5 thou/uL (1.20-3.40); #Monocytes 0.6 thou/uL (0.11-0.59); #Neutrophils 6.9 thou/uL (1.40-6.50); %Basophils 0.8 % (0.0-1.0); %Eosinophils 1.1 % (0.0-10.0); %Lymphocytes 31.3 % (21.0-51.0); %Monocytes 5.6 % (0.0-10.0); %Neutrophils 61.2 % (42.0-75.0); Hemoglobin 16.1 g/dL (12.0-16.0); Mean Corpuscular HGB CONC 34.7 g/dL (32.0-36.0); Mean Platelet Volume 9.1 fL (7.4-10.4); Platelet Count 265 thou/uL (130-400); RBC Distribution Width 11.9 % (11.5-14.5); Red Blood Cell (RBC) Count 4.73 mill/uL (4.20-5.40); White Blood Cell (WBC) Count 11.2 thou/uL (4.8-10.8)
[2021-04-15 18:29] LABS: ALT (SGPT) 17 U/L (8-55); AST (SGOT) 13 U/L (5-34); Alkaline Phosphatase 168 U/L (40-110); Anion Gap 15 mmol/L (10-20); BUN (Urea Nitrogen) 21 mg/dL (9.8-20.1); Bilirubin, Total 0.3 mg/dL (0.2-1.2); Calc. Creatinine Clearance 0 mL/min (70-130); Calcium 10.5 mg/dL (7.8-10.44); Carbon Dioxide 25 mmol/L (23-31); Chloride 99 mmol/L (98-107); Globulin 3.9 g/dL (2.4-3.5); Glucose 136 mg/dL (80-115); Lipase 29 U/L (8-78); Potassium 5.2 mmol/L (3.5-5.1); Protein, Total 8.9 g/dL (5.8-8.1); Sodium 134 mmol/L (136-145)
[2021-04-15] MEDS ORDERED: Nitroglycerin 2% Ointment 1 INCH/1 GM Packet ONE (20:51)
[2021-04-15] MEDS ORDERED: Acetaminophen 325 MG TAB PO PRN (22:11)
[2021-04-15] MEDS ORDERED: Ondansetron PF 4 MG/2 ML Vial IVP PRN (22:11)
[2021-04-15] MEDS ORDERED: Senokot S 8.6-50 MG TAB PO PRN (22:11)
[2021-04-15] MEDS ORDERED: Ondansetron ODT 4 MG TAB PO PRN (22:11)
[2021-04-15] MEDS ORDERED: traMADol HCl 50 MG TAB PO PRN (22:12)
[2021-04-15] MEDS ORDERED: Sodium Chloride 0.9% 1,000 ML IV SCH (22:15)
[2021-04-15] MEDS ORDERED: Nicotine 14 MG PATCH TD SCH (22:15)
[2021-04-15] MEDS: HYDROcodone/Acetaminophen 10/325 mg Tablet PO PRN (23:23)
[2021-04-15 23:35] LABS: Troponin I Less than 0.010 ng/mL (< 0.028)
[2021-04-16 00:30] VITALS: BMI 31.1
[2021-04-16 01:06] LABS: Bacteria/HPF None Seen HPF (None Seen); Bilirubin Negative (Negative); Blood, Urine 1+ (Negative); Clarity Clear (Clear); Glucose, Urine (Dipstick) Normal (Negative); Ketone, Urine Negative (Negative); Leukocyte Negative Leu/uL (Negative); Nitrite Negative (Negative); Protein, Urine (Dipstick) Negative (Neg-Trace); RBC/HPF 0-3 HPF (0-3); Specific Gravity, Urine 1.012 (1.002-1.036); Squamous Epithelial 0-3 HPF (0-3); Urobilinogen Normal mg/dL (Less than 2); WBC/HPF None Seen HPF (0-3)
[2021-04-16 01:15] LABS: Urine Culture Reflex No No
[2021-04-16 01:55] LABS: Troponin I Less than 0.010 ng/mL (< 0.028)
[2021-04-16] MEDS ORDERED: Nitroglycerin 2% Ointment 1 INCH/1 GM Packet TOP SCH (06:00)
[2021-04-16 06:50] LABS: #Basophils 0.1 thou/uL (0.0-0.2); #Eosinphils 0.1 thou/uL (0.0-0.7); #Lymphocytes 3.6 thou/uL (1.20-3.40); #Monocytes 0.8 thou/uL (0.11-0.59); #Neutrophils 5.7 thou/uL (1.40-6.50); %Basophils 0.5 % (0.0-1.0); %Eosinophils 1.1 % (0.0-10.0); %Lymphocytes 34.8 % (21.0-51.0); %Monocytes 7.7 % (0.0-10.0); %Neutrophils 55.8 % (42.0-75.0); Mean Corpuscular HGB CONC 34.3 g/dL (32.0-36.0); Mean Corpuscular Hemoglobin 33.5 pg (27.0-31.0); Mean Corpuscular Volume 97.4 fL (78.0-98.0); Mean Platelet Volume 9.3 fL (7.4-10.4); Platelet Count 219 thou/uL (130-400); RBC Distribution Width 11.9 % (11.5-14.5); Red Blood Cell (RBC) Count 4.19 mill/uL (4.20-5.40); White Blood Cell (WBC) Count 10.3 thou/uL (4.8-10.8)
[2021-04-16 07:07] LABS: Hemoglobin A1c 5.8 % (4.0-6.0)
[2021-04-16 07:14] LABS: ALT (SGPT) 12 U/L (8-55); AST (SGOT) 10 U/L (5-34); Albumin 4.2 g/dL (3.4-4.8); Alkaline Phosphatase 145 U/L (40-110); Anion Gap 11 mmol/L (10-20); BUN (Urea Nitrogen) 20 mg/dL (9.8-20.1); Bilirubin, Total 0.3 mg/dL (0.2-1.2); Calc. Creatinine Clearance 88 mL/min (70-130); Calcium 9.5 mg/dL (7.8-10.44); Carbon Dioxide 24 mmol/L (23-31); Cardiac Risk 5.9 (Less than 4.5); Chloride 104 mmol/L (98-107); Cholesterol 207 mg/dl (< 200 Desired); Glucose 116 mg/dL (80-115); HDL Cholesterol 35 mg/dL (>60 Neg Risk); LDL Cholesterol, Calculated 147 mg/dL; Magnesium 1.9 mg/dL (1.6-2.6); Potassium 4.2 mmol/L (3.5-5.1); Protein, Total 7.2 g/dL (5.8-8.1); Sodium 135 mmol/L (136-145); Triglycerides 126 mg/dL (Less than 150)
[2021-04-16] MEDS ORDERED: Aspirin Chewable 81 MG TAB PO SCH (09:00)
[2021-04-16] MEDS ORDERED: FLU VACC QS2021-22(6MOS UP)/PF 60 MCG/0.5 ML SYRINGE IM ONE (09:00)
[2021-04-16] MEDS: HYDROcodone/Acetaminophen 10/325 mg Tablet PO PRN (09:19)
[2021-04-16] MEDS ORDERED: Regadenoson 0.4 MG/5 ML SYRINGE ONE (10:26)
[2021-04-16 12:35] LABS: SARS-CoV-2 PCR by NAA Not Detected (NotDetected)
[2021-04-16 13:41] VITALS: BP 148/69; TEMP 98.3
== END 2021-04-16 16:20 | disposition home or self-care (01) ==
LOC: ERS 17:41 → 2SW 21:13
PROVIDERS: ADMIT Student in an Organized Health Care Education/Training Program; ATTEND Internal Medicine
DX: R07.89 Other chest pain (principal); I10 Essential (primary) hypertension; E87.5 Hyperkalemia; E87.1 Hypo-osmolality and hyponatremia; R73.9 Hyperglycemia, unspecified; D72.829 Elevated white blood cell count, unspecified; R74.8 Abnormal levels of other serum enzymes; G89.29 Other chronic pain; M54.50 Low back pain, unspecified; F17.210 Nicotine dependence, cigarettes, uncomplicated; Z20.822 Contact with and (suspected) exposure to COVID-19; Z79.899 Other long term (current) drug therapy; Z88.1 Allergy status to other antibiotic agents; Z88.2 Allergy status to sulfonamides; Z88.8 Allergy status to other drugs, medicaments and biological substances
CPT/HCPCS: 36415; 71045; 78452; 80053; 80061; 81001; 83036; 83690; 83735; 84443; 84484; 85025; 93005; 93017; A9500; G0378; J2785; J7050; U0003; U0005

== ENCOUNTER 2021-06-27 10:17 | Outpatient (CLI) | payer BC | END 2021-06-27 10:18 | disposition home or self-care (01) | LOC: BICMAMMO 10:17 | PROVIDERS: ATTEND Family Medicine | DX: R92.8 Other abnormal and inconclusive findings on diagnostic imaging of breast (principal) | CPT/HCPCS: 77066; G0279 ==

== ENCOUNTER 2021-07-24 14:53 | Outpatient (CLI) | payer BC | END 2021-07-24 14:54 | disposition home or self-care (01) | LOC: BICCT 14:53 | PROVIDERS: ATTEND Neurological Surgery | DX: M43.16 Spondylolisthesis, lumbar region (principal); M51.36 Other intervertebral disc degeneration, lumbar region; M47.816 Spondylosis without myelopathy or radiculopathy, lumbar region; Z98.890 Other specified postprocedural states | CPT/HCPCS: 72131 ==

== ENCOUNTER 2021-08-02 08:35 | Emergency (ER) | payer BC ==
[2021-08-02] MEDS ORDERED: Morphine 4 MG/ML VIAL ONE (09:22)
== END 2021-08-02 10:00 | disposition home or self-care (01) ==
LOC: ERS 08:35
DX: M54.50 Low back pain, unspecified (principal); M25.552 Pain in left hip; G89.29 Other chronic pain; I10 Essential (primary) hypertension; J45.909 Unspecified asthma, uncomplicated; F17.210 Nicotine dependence, cigarettes, uncomplicated; Z86.73 Personal history of transient ischemic attack (TIA), and cerebral infarction without residual deficits; Z79.899 Other long term (current) drug therapy
CPT/HCPCS: 96372; J2270

== ENCOUNTER 2021-08-11 19:45 | Emergency (ER) | payer BC ==
[2021-08-11] MEDS ORDERED: Morphine 4 MG/ML VIAL ONE (21:06)
== END 2021-08-11 22:23 | disposition home or self-care (01) ==
LOC: ERS 19:45
DX: S80.12XA Contusion of left lower leg, initial encounter (principal); F17.210 Nicotine dependence, cigarettes, uncomplicated; X58.XXXA Exposure to other specified factors, initial encounter
CPT/HCPCS: 96372; J2270

== ENCOUNTER 2021-08-17 23:22 | Emergency (ER) | payer BC ==
[2021-08-18] MEDS ORDERED: Morphine 4 MG/ML VIAL ONE (00:15)
[2021-08-18] MEDS ORDERED: Diazepam 5 MG TAB ONE (00:15)
[2021-08-18 01:37] LABS: Bacteria/HPF None Seen HPF (None Seen); Bilirubin Negative (Negative); Blood, Urine Trace (Negative); Clarity Clear (Clear); Glucose, Urine (Dipstick) Normal (Negative); Ketone, Urine Negative (Negative); Leukocyte Negative Leu/uL (Negative); Nitrite Negative (Negative); Protein, Urine (Dipstick) Negative (Neg-Trace); RBC/HPF 0-3 HPF (0-3); Specific Gravity, Urine 1.008 (1.002-1.036); Squamous Epithelial 0-3 HPF (0-3); Urobilinogen Normal mg/dL (Less than 2); WBC/HPF 0-3 HPF (0-3)
== END 2021-08-18 02:16 | disposition home or self-care (01) ==
LOC: ERS 23:22
DX: M54.50 Low back pain, unspecified (principal); R31.29 Other microscopic hematuria; F17.210 Nicotine dependence, cigarettes, uncomplicated; I10 Essential (primary) hypertension; Z86.73 Personal history of transient ischemic attack (TIA), and cerebral infarction without residual deficits
CPT/HCPCS: 81003; 81015; 96372; 99283; J2270

== ENCOUNTER 2021-08-20 16:08 | Emergency (ER) | payer BC ==
[2021-08-20] MEDS ORDERED: Morphine 4 MG/ML VIAL ONE (17:17)
[2021-08-20] MEDS ORDERED: Ondansetron ODT 4 MG TAB ONE (17:18)
== END 2021-08-20 17:53 | disposition home or self-care (01) ==
LOC: ERS 16:08
DX: M54.50 Low back pain, unspecified (principal); Z86.73 Personal history of transient ischemic attack (TIA), and cerebral infarction without residual deficits; F17.210 Nicotine dependence, cigarettes, uncomplicated
CPT/HCPCS: 96374; J2270; Q0162

== ENCOUNTER 2021-08-28 09:41 | Outpatient (CLI) | payer BC | END 2021-08-28 09:42 | disposition home or self-care (01) | LOC: RAD 09:41 | PROVIDERS: ATTEND Family Medicine | DX: R10.84 Generalized abdominal pain (principal) | CPT/HCPCS: 74019 ==

== ENCOUNTER 2021-10-04 01:11 | Emergency (ER) | payer BC ==
[2021-10-04 01:57] LABS: #Basophils 0.1 thou/uL (0.0-0.2); #Eosinphils 0.2 thou/uL (0.0-0.7); #Monocytes 0.9 thou/uL (0.11-0.59); #Neutrophils 6.8 thou/uL (1.40-6.50); %Basophils 0.8 % (0.0-1.0); %Eosinophils 1.6 % (0.0-10.0); %Lymphocytes 33.6 % (21.0-51.0); %Monocytes 7.3 % (0.0-10.0); %Neutrophils 56.7 % (42.0-75.0); Hemoglobin 14.1 g/dL (12.0-16.0); Mean Corpuscular Volume 99.8 fL (78.0-98.0); Mean Platelet Volume 9.1 fL (7.4-10.4); Platelet Count 202 thou/uL (130-400); RBC Distribution Width 11.8 % (11.5-14.5); Red Blood Cell (RBC) Count 4.15 mill/uL (4.20-5.40); White Blood Cell (WBC) Count 11.9 thou/uL (4.8-10.8)
[2021-10-04 02:14] LABS: ALT (SGPT) 21 U/L (8-55); AST (SGOT) 14 U/L (5-34); Albumin 4.3 g/dL (3.4-4.8); Alkaline Phosphatase 129 U/L (40-110); Anion Gap 15 mmol/L (10-20); BUN (Urea Nitrogen) 9 mg/dL (9.8-20.1); Bilirubin, Total 0.4 mg/dL (0.2-1.2); Calc. Creatinine Clearance 0 mL/min (70-130); Calcium 10.1 mg/dL (7.8-10.44); Carbon Dioxide 24 mmol/L (23-31); Chloride 103 mmol/L (98-107); Globulin 2.7 g/dL (2.4-3.5); Glucose 109 mg/dL (80-115); Potassium 3.4 mmol/L (3.5-5.1); Sodium 139 mmol/L (136-145)
[2021-10-04] MEDS ORDERED: HYDROcodone/Acetaminophen 5/325 mg Tablet ONE (02:58)
== END 2021-10-04 06:49 | disposition home or self-care (01) ==
LOC: ERS 01:11
DX: R07.9 Chest pain, unspecified (principal); I10 Essential (primary) hypertension; J45.909 Unspecified asthma, uncomplicated; F17.210 Nicotine dependence, cigarettes, uncomplicated; Z86.73 Personal history of transient ischemic attack (TIA), and cerebral infarction without residual deficits
CPT/HCPCS: 36415; 71045; 80053; 84484; 85025; 93005

== ENCOUNTER 2021-10-25 22:00 | Emergency (ER) | payer BC, OTHER ==
[2021-10-25] MEDS ORDERED: diphenhydrAMINE 12.5 MG/5 ML UDCUP ONE (23:08)
[2021-10-25] MEDS ORDERED: diphenhydrAMINE 50 MG/ML VIAL ONE (23:08)
[2021-10-25] MEDS ORDERED: Famotidine 20 MG TAB ONE (23:20)
[2021-10-25] MEDS ORDERED: hydrOXYzine 25 MG TAB ONE (23:41)
== END 2021-10-26 01:44 | disposition home or self-care (01) ==
LOC: ERS 22:00
DX: L50.0 Allergic urticaria (principal); I10 Essential (primary) hypertension; F17.210 Nicotine dependence, cigarettes, uncomplicated; Z86.711 Personal history of pulmonary embolism; Z86.73 Personal history of transient ischemic attack (TIA), and cerebral infarction without residual deficits
CPT/HCPCS: 71045; 93005; 96374; J1200; Q0163

== ENCOUNTER 2021-11-08 15:34 | Outpatient (CLI) | payer BC, OTHER | END 2021-11-08 15:35 | disposition home or self-care (01) | LOC: BICRAD 15:34 | PROVIDERS: ATTEND Family Medicine | DX: M25.511 Pain in right shoulder (principal) | CPT/HCPCS: 71130 ==

== ENCOUNTER 2022-03-03 14:44 | Inpatient (IN) | payer BC ==
[~2022-03-03 14:44] MED LIST: Iopamidol-370 76% 500 ML 1 ML ONE
[2022-03-03 15:28] LABS: #Basophils 0.1 thou/uL (0.0-0.2); #Eosinphils 0.1 thou/uL (0.0-0.7); #Lymphocytes 2.9 thou/uL (1.20-3.40); #Monocytes 0.6 thou/uL (0.11-0.59); #Neutrophils 3.9 thou/uL (1.40-6.50); %Basophils 0.8 % (0.0-1.0); %Eosinophils 1.2 % (0.0-10.0); %Lymphocytes 38.2 % (21.0-51.0); %Neutrophils 51.8 % (42.0-75.0); Hemoglobin 14.2 g/dL (12.0-16.0); Mean Corpuscular HGB CONC 34.9 g/dL (32.0-36.0); Mean Corpuscular Hemoglobin 33.2 pg (27.0-31.0); Mean Corpuscular Volume 95.1 fL (78.0-98.0); Mean Platelet Volume 9.3 fL (7.4-10.4); Platelet Count 190 thou/uL (130-400); RBC Distribution Width 12.1 % (11.5-14.5); Red Blood Cell (RBC) Count 4.29 mill/uL (4.20-5.40); White Blood Cell (WBC) Count 7.6 thou/uL (4.8-10.8)
[2022-03-03 15:41] LABS: INR-International Normal Ratio 1.1; Prothrombin Time 14.4 sec (12.0-14.7)
[2022-03-03 15:42] LABS: PTT 38.3 sec (22.9-36.1)
[2022-03-03 15:56] LABS: ALT (SGPT) 14 U/L (8-55); AST (SGOT) 13 U/L (5-34); Albumin 4.2 g/dL (3.4-4.8); Alkaline Phosphatase 145 U/L (40-110); Anion Gap 11 mmol/L (10-20); BUN (Urea Nitrogen) 10 mg/dL (9.8-20.1); Bilirubin, Total 0.4 mg/dL (0.2-1.2); Calc. Creatinine Clearance 0 mL/min (70-130); Calcium 9.7 mg/dL (7.8-10.44); Carbon Dioxide 26 mmol/L (23-31); Chloride 101 mmol/L (98-107); Estimated GFR 86; Globulin 3.2 g/dL (2.4-3.5); Glucose 108 mg/dL (80-115); Potassium 3.1 mmol/L (3.5-5.1); Protein, Total 7.4 g/dL (5.8-8.1); Sodium 135 mmol/L (136-145)
[2022-03-03] MEDS ORDERED: Aspirin 325 MG TAB ONE (16:15)
[2022-03-03] MEDS ORDERED: Meclizine HCl 25 MG TAB ONE (16:16)
[2022-03-03] MEDS ORDERED: Aspirin Chewable 81 MG TAB ONE (16:18)
[2022-03-03] MEDS ORDERED: Bisacodyl 5 MG TAB PO PRN (16:50)
[2022-03-03] MEDS ORDERED: Ondansetron PF 4 MG/2 ML Vial IVP PRN (16:50)
[2022-03-03] MEDS ORDERED: Acetaminophen 325 MG TAB PO PRN (16:50)
[2022-03-03] MEDS ORDERED: Bisacodyl 10 MG SUPP PR PRN (16:50)
[2022-03-03] MEDS ORDERED: Senokot S 8.6-50 MG TAB PO PRN (16:50)
[2022-03-03] MEDS ORDERED: Sodium Chloride 0.9% 1,000 ML IV SCH (17:00)
[2022-03-03] MEDS ORDERED: Potassium Chloride 20 MEQ TAB PO SCH (17:00)
[2022-03-03 17:15] LABS: Hemoglobin A1c 5.9 % (4.0-6.0)
[2022-03-03 18:54] LABS: Bilirubin Negative (Negative); Blood, Urine Negative (Negative); Clarity Clear (Clear); Glucose, Urine (Dipstick) Normal (Negative); Ketone, Urine Negative (Negative); Leukocyte Negative Leu/uL (Negative); Nitrite Negative (Negative); Protein, Urine (Dipstick) Negative (Neg-Trace); Urobilinogen Normal mg/dL (Less than 2)
[2022-03-03 19:44] VITALS: BMI 29.9
[2022-03-03] MEDS ORDERED: HYDROcodone/Acetaminophen 10/325 mg Tablet PO PRN (19:59)
[2022-03-03] MEDS ORDERED: ALPRAZolam 0.25 MG TAB PO PRN (19:59)
[2022-03-03] MEDS: Atorvastatin Calcium 40 MG TAB PO SCH (20:46)
[2022-03-03] MEDS: HYDROcodone/Acetaminophen 10/325 mg Tablet PO PRN (20:46)
[2022-03-03 22:15] LABS: Bacteria/HPF None Seen HPF (None Seen); Bilirubin Negative (Negative); Blood, Urine Trace (Negative); Clarity Clear (Clear); Glucose, Urine (Dipstick) Normal (Negative); Ketone, Urine Negative (Negative); Leukocyte Negative Leu/uL (Negative); Nitrite Negative (Negative); Protein, Urine (Dipstick) Negative (Neg-Trace); RBC/HPF 0-3 HPF (0-3); Specific Gravity, Urine 1.032 (1.002-1.036); Squamous Epithelial 0-3 HPF (0-3); Urobilinogen Normal mg/dL (Less than 2); WBC/HPF 0-3 HPF (0-3)
[2022-03-03 22:17] LABS: Urine Culture Reflex No No
[2022-03-03 22:36] LABS: Creatinine, Urine 39.03 mg/dL (47-110)
[2022-03-04] MEDS: HYDROcodone/Acetaminophen 10/325 mg Tablet PO PRN ×4 (05:13→20:47)
[2022-03-04 05:41] LABS: ALT (SGPT) 13 U/L (8-55); AST (SGOT) 15 U/L (5-34); Albumin 3.9 g/dL (3.4-4.8); Alkaline Phosphatase 141 U/L (40-110); Bilirubin, Direct 0.1 mg/dL (0.1-0.3); Bilirubin, Total 0.5 mg/dL (0.2-1.2); Protein, Total 6.9 g/dL (5.8-8.1)
[2022-03-04 05:45] LABS: Anion Gap 13 mmol/L (10-20); BUN (Urea Nitrogen) 9 mg/dL (9.8-20.1); Calc. Creatinine Clearance 95 mL/min (70-130); Calcium 9.4 mg/dL (7.8-10.44); Carbon Dioxide 21 mmol/L (23-31); Cardiac Risk 6.9 (Less than 4.5); Chloride 108 mmol/L (98-107); Cholesterol 206 mg/dl (< 200 Desired); Estimated GFR 98; Glucose 110 mg/dL (80-115); HDL Cholesterol 30 mg/dL (>60 Neg Risk); LDL Cholesterol, Calculated 138 mg/dL; Sodium 138 mmol/L (136-145); Triglycerides 190 mg/dL (Less than 150)
[2022-03-04 06:00] LABS: Band 5 % (5-11); Hemoglobin 13.4 g/dL (12.0-16.0); Lymphocytes 62 % (21-51); MDiff Complete? YES; Mean Corpuscular HGB CONC 31.8 g/dL (32.0-36.0); Mean Corpuscular Volume 97.4 fL (78.0-98.0); Mean Platelet Volume 9.5 fL (7.4-10.4); Monocytes 2 % (0-10); Neutrophil 31 % (42-75); Platelet Count 212 thou/uL (130-400); RBC Distribution Width 12.4 % (11.5-14.5); Red Blood Cell (RBC) Count 4.33 mill/uL (4.20-5.40); White Blood Cell (WBC) Count 6.7 thou/uL (4.8-10.8)
[2022-03-04] MEDS ORDERED: Albuterol 200 PUFF (6.7GM INHALER) INH PRN (07:45)
[2022-03-04] MEDS ORDERED: ALPRAZolam 0.5 MG TAB PO PRN ×2 (07:46→07:47)
[2022-03-04] MEDS ORDERED: Fluticasone Propionate Nasal Spray 16 gm Bottle NASAL PRN (08:23)
[2022-03-04] MEDS: Hydrochlorothiazide 25 MG TAB PO SCH (08:49)
[2022-03-04] MEDS: Amlodipine 10 MG TAB PO SCH (08:49)
[2022-03-04] MEDS: Aspirin 81 mg Enteric Coated Tablet PO SCH (08:50)
[2022-03-04] MEDS: Cholecalciferol 1,000 UNITS (25 MCG) TAB PO SCH (08:51)
[2022-03-04] MEDS: Loratadine 10 MG TAB PO PRN (09:46)
[2022-03-04] MEDS ORDERED: diphenhydrAMINE 25 MG CAP PO PRN (14:00)
[2022-03-04] MEDS: Atorvastatin Calcium 40 MG TAB PO SCH (20:47)
[2022-03-04] MEDS ORDERED: Enoxaparin Sodium 40 MG/0.4 ML SYRINGE SC SCH ×3 (21:00)
[2022-03-05 06:46] LABS: Anion Gap 14 mmol/L (10-20); BUN (Urea Nitrogen) 16 mg/dL (9.8-20.1); Calc. Creatinine Clearance 86 mL/min (70-130); Calcium 9.1 mg/dL (7.8-10.44); Carbon Dioxide 22 mmol/L (23-31); Chloride 108 mmol/L (98-107); Estimated GFR 87; Glucose 111 mg/dL (80-115); Magnesium 1.9 mg/dL (1.6-2.6); Potassium 3.6 mmol/L (3.5-5.1); Sodium 140 mmol/L (136-145)
[2022-03-05] MEDS: Cholecalciferol 1,000 UNITS (25 MCG) TAB PO SCH (09:09)
[2022-03-05] MEDS: Aspirin 81 mg Enteric Coated Tablet PO SCH (09:09)
[2022-03-05] MEDS: Amlodipine 10 MG TAB PO SCH (09:09)
[2022-03-05] MEDS: Hydrochlorothiazide 25 MG TAB PO SCH (09:09)
[2022-03-05] MEDS: HYDROcodone/Acetaminophen 10/325 mg Tablet PO PRN ×2 (09:11→15:03)
[2022-03-05] MEDS: Loratadine 10 MG TAB PO PRN (09:19)
[2022-03-05 16:26] VITALS: BP 153/88; TEMP 98.3
== END 2022-03-05 18:33 | disposition left against medical advice (07) | DRG 92 ==
LOC: SUATTDRO 14:44 → ERS 14:44 → NEURO 16:56 → OBSVTOIN 03-04 12:59
PROVIDERS: ADMIT Internal Medicine; ATTEND Internal Medicine
DX: R27.0 Ataxia, unspecified (principal); E87.1 Hypo-osmolality and hyponatremia; Z20.822 Contact with and (suspected) exposure to COVID-19; I10 Essential (primary) hypertension; J45.909 Unspecified asthma, uncomplicated; F17.210 Nicotine dependence, cigarettes, uncomplicated; E87.6 Hypokalemia; D75.89 Other specified diseases of blood and blood-forming organs; E78.2 Mixed hyperlipidemia; L23.9 Allergic contact dermatitis, unspecified cause; F41.9 Anxiety disorder, unspecified; F98.8 Other specified behavioral and emotional disorders with onset usually occurring in childhood and adolescence; Z53.29 Procedure and treatment not carried out because of patient's decision for other reasons; Z88.1 Allergy status to other antibiotic agents; Z88.2 Allergy status to sulfonamides; Z88.8 Allergy status to other drugs, medicaments and biological substances; Z79.51 Long term (current) use of inhaled steroids; Z79.899 Other long term (current) drug therapy; Z90.710 Acquired absence of both cervix and uterus
CPT/HCPCS: 36415; 36416; 70450; 70496; 70498; 71045; 80048; 80053; 80061; 80076; 81003; 82570; 83036; 83735; 83930; 83935; 84300; 84443; 84484; 84540; 85025; 85610; 85730; 93005; 93306; G0378; J1650; J7050; Q9967; U0003; U0005

== ENCOUNTER 2022-03-12 13:30 | Outpatient (CLI) | payer BC ==
[~2022-03-12 13:30] MED LIST changes: -Iopamidol-370 76% 500 ML 1 ML ONE; +Magnevist 469MG/ML 20 ML VIAL ONE
== END 2022-03-12 13:31 | disposition home or self-care (01) ==
LOC: TBSIIMAG 13:30
PROVIDERS: ATTEND Family Medicine
DX: R29.898 Other symptoms and signs involving the musculoskeletal system (principal); I67.82 Cerebral ischemia; I63.9 Cerebral infarction, unspecified
CPT/HCPCS: 70553; A9579

== ENCOUNTER 2022-10-28 20:35 | Emergency (ER) | payer BC ==
[2022-10-28 23:29] LABS: #Eosinphils 0.3 thou/uL (0.0-0.7); #Monocytes 0.7 thou/uL (0.11-0.59); #Neutrophils 4.4 thou/uL (1.40-6.50); %Basophils 0.5 % (0.0-1.0); %Eosinophils 3.9 % (0.0-10.0); %Lymphocytes 32.5 % (21.0-51.0); %Monocytes 8.8 % (0.0-10.0); %Neutrophils 53.9 % (42.0-75.0); Hemoglobin 9.3 g/dL (12.0-16.0); Mean Corpuscular HGB CONC 32.6 g/dL (32.0-36.0); Mean Corpuscular Hemoglobin 31.6 pg (27.0-31.0); Mean Corpuscular Volume 96.9 fl (78.0-98.0); Mean Platelet Volume 10.9 fL (7.4-10.4); Platelet Count 284 10x3/uL (130-400); RBC Distribution Width 13.2 % (11.5-14.5); Red Blood Cell (RBC) Count 2.94 mill/uL (4.20-5.40); White Blood Cell (WBC) Count 8.2 10x3/uL (4.8-10.8)
[2022-10-28 23:56] LABS: ALT (SGPT) 19 U/L (8-55); AST (SGOT) 16 U/L (5-34); Albumin 3.9 g/dL (3.4-4.8); Alkaline Phosphatase 155 U/L (40-110); Anion Gap 13 mmol/L (10-20); BUN (Urea Nitrogen) 10 mg/dL (9.8-20.1); Bilirubin, Total 0.4 mg/dL (0.2-1.2); Calc. Creatinine Clearance 0 mL/min (70-130); Calcium 9.4 mg/dL (7.8-10.44); Carbon Dioxide 25 mmol/L (23-31); Chloride 106 mmol/L (98-107); Estimated GFR 94; Glucose 131 mg/dL (80-115); Potassium 3.9 mmol/L (3.5-5.1); Protein, Total 6.9 g/dL (5.8-8.1); Sodium 140 mmol/L (136-145)
[2022-10-29] MEDS ORDERED: Morphine 4 MG/ML VIAL ONE (00:21)
== END 2022-10-29 00:42 | disposition home or self-care (01) ==
LOC: ERS 20:35
DX: G89.18 Other acute postprocedural pain (principal); R60.0 Localized edema; J45.909 Unspecified asthma, uncomplicated; Z79.899 Other long term (current) drug therapy; I10 Essential (primary) hypertension; Z87.891 Personal history of nicotine dependence
CPT/HCPCS: 36415; 80053; 85025; 85379; 96374; J2270

== ENCOUNTER 2023-05-19 14:30 | Outpatient (CLI) | payer BC | END 2023-05-19 14:31 | disposition home or self-care (01) | LOC: ULT 14:30 | PROVIDERS: ATTEND Physician Assistant | DX: E07.9 Disorder of thyroid, unspecified (principal) | CPT/HCPCS: 76536 ==

== ENCOUNTER 2023-06-04 19:49 | Emergency (ER) | payer BC ==
[2023-06-04 20:27] LABS: #Monocytes 0.4 thou/uL (0.11-0.59); #Neutrophils 12.1 thou/uL (1.40-6.50); %Basophils 0.1 % (0.0-1.0); %Monocytes 2.8 % (0.0-10.0); %Neutrophils 86.5 % (42.0-75.0); Hematocrit 44.3 % (36.0-47.0); Hemoglobin 14.6 g/dL (12.0-16.0); Mean Corpuscular Hemoglobin 29.4 pg (27.0-31.0); Mean Corpuscular Volume 89.3 fl (78.0-98.0); Mean Platelet Volume 11.4 fL (7.4-10.4); Platelet Count 292 10x3/uL (130-400); RBC Distribution Width 14.5 % (11.5-14.5); Red Blood Cell (RBC) Count 4.96 mill/uL (4.20-5.40)
[2023-06-04 20:31] LABS: Bacteria/HPF None Seen HPF (None Seen); CAUTI Indications for Culture Pelvic or flank pain; RBC/HPF 0-3 HPF (0-3); Squamous Epithelial None Seen HPF (0-3); WBC/HPF None Seen HPF (0-3)
[2023-06-04] MEDS ORDERED: Ketorolac Tromethamine 30 MG/ML VIAL ONE (20:36)
[2023-06-04 20:41] LABS: Specific Gravity, Urine 1.005 (1.002-1.036)
[2023-06-04 20:42] LABS: Bilirubin Negative (Negative); Blood, Urine Negative (Negative); Clarity Clear (Clear); Glucose, Urine (Dipstick) Negative (Negative); Ketone, Urine Negative (Negative); Leukocyte Negative (Negative); Nitrite Negative (Negative); Protein, Urine (Dipstick) Negative (Neg-Trace); Urobilinogen 0.2 mg/dL (Less than 2)
[2023-06-04 20:43] LABS: Urine Culture Reflex No No
[2023-06-04] MEDS ORDERED: Orphenadrine Citrate 60 MG/2 ML VIAL ONE (20:47)
[2023-06-04 20:49] LABS: ALT (SGPT) 17 U/L (8-55); AST (SGOT) 14 U/L (5-34); Albumin 5.4 g/dL (3.4-4.8); Alkaline Phosphatase 161 U/L (40-110); Anion Gap 13 mmol/L (10-20); BUN (Urea Nitrogen) 15 mg/dL (9.8-20.1); Bilirubin, Total 0.4 mg/dL (0.2-1.2); Calc. Creatinine Clearance 0 mL/min (70-130); Calcium 10.7 mg/dL (7.8-10.44); Carbon Dioxide 27 mmol/L (23-31); Chloride 102 mmol/L (98-107); Estimated GFR 75; Globulin 3.5 g/dL (2.4-3.5); Glucose 144 mg/dL (80-115); Potassium 3.3 mmol/L (3.5-5.1); Protein, Total 8.9 g/dL (5.8-8.1); Sodium 139 mmol/L (136-145)
[2023-06-04 20:53] LABS: Troponin I 0.016 ng/mL (< 0.028)
== END 2023-06-04 22:05 | disposition home or self-care (01) ==
LOC: ERS 19:49
DX: R07.89 Other chest pain (principal); I10 Essential (primary) hypertension; M62.830 Muscle spasm of back; F17.210 Nicotine dependence, cigarettes, uncomplicated
CPT/HCPCS: 71045; 80053; 81001; 84484; 85025; 93005; 96374; 96375; J1885; J2360

== ENCOUNTER 2023-09-19 12:17 | Emergency (ER) | payer BC ==
[2023-09-19] MEDS ORDERED: HYDROcodone/Acetaminophen 10/325 mg Tablet ONE (13:04)
[2023-09-19] MEDS ORDERED: Ketorolac Tromethamine 30 MG (1 mL) VIAL ONE (13:04)
== END 2023-09-19 13:55 | disposition home or self-care (01) ==
LOC: ERS 12:17
DX: M54.6 Pain in thoracic spine (principal); I10 Essential (primary) hypertension; E11.9 Type 2 diabetes mellitus without complications; Z79.899 Other long term (current) drug therapy
CPT/HCPCS: 71045; 96372; J1885

== ENCOUNTER 2023-11-26 10:22 | Outpatient (CLI) | payer BC | END 2023-11-26 10:23 | disposition home or self-care (01) | LOC: RAD 10:22 | PROVIDERS: ATTEND Physical Medicine & Rehabilitation | DX: M25.562 Pain in left knee (principal); M25.561 Pain in right knee; S82.091A Other fracture of right patella, initial encounter for closed fracture ==

== ENCOUNTER 2023-12-16 12:54 | Outpatient (CLI) | payer BC | END 2023-12-16 12:55 | disposition home or self-care (01) | LOC: BICMRI 12:54 | PROVIDERS: ATTEND Physician Assistant Surgical | DX: M25.562 Pain in left knee (principal) ==

== ENCOUNTER 2024-04-13 14:30 | Outpatient (CLI) | payer BC ==
[2024-04-13 16:08] LABS: #Basophils 0.03 10x3/uL (0.0-0.2); %Basophils 0.4 % (0.0-1.0); %Eosinophils 1.3 % (0.0-10.0); %Lymphocytes 38.3 % (21.0-51.0); %Monocytes 8.1 % (0.0-10.0); %Neutrophils 51.6 % (42.0-75.0); Hematocrit 39.4 % (36.0-47.0); Hemoglobin 12.7 g/dL (12.0-16.0); Mean Corpuscular HGB CONC 32.2 g/dL (32.0-36.0); Mean Corpuscular Hemoglobin 29.5 pg (27.0-31.0); Mean Corpuscular Volume 91.4 fL (78.0-98.0); Mean Platelet Volume 11.1 fL (7.4-10.4); Platelet Count 255 10x3/uL (130-400); RBC Distribution Width 14.1 % (11.5-14.5); Red Blood Cell (RBC) Count 4.31 mill/uL (4.20-5.40)
== END 2024-04-13 14:31 | disposition home or self-care (01) ==
LOC: LABBT 14:30
PROVIDERS: ATTEND Orthopaedic Surgery Hand Surgery
DX: Z01.818 Encounter for other preprocedural examination (principal); S63.591A Other specified sprain of right wrist, initial encounter; G56.03 Carpal tunnel syndrome, bilateral upper limbs; G56.11 Other lesions of median nerve, right upper limb
CPT/HCPCS: 85025; 93005; 93010

== ENCOUNTER 2024-04-16 10:57 | Day surgery (SDC) | payer BC ==
[2024-04-13 14:49] VITALS: BMI 23.4
[2024-04-16] MEDS ORDERED: fentaNYL 50 mcg/mL 1 mL Vial ONE (14:05)
[2024-04-19] MEDS ORDERED: Ropivacaine 0.5% HCl/PF (150 MG/30 ML VIAL) ONE (14:30)
[2024-04-19] MEDS ORDERED: Ropivacaine 2% HCl/PF (20 MG/10 ML VIAL) ONE (14:30)
[2024-04-19] MEDS ORDERED: EPINEPHrine 1 MG/ML AMP ONE (14:30)
[2024-04-19] MEDS ORDERED: Dexamethasone 20 MG/5 ML VIAL ONE (15:17)
[2024-04-19] MEDS ORDERED: Lidocaine 1% PF 5 ML VIAL ONE (15:17)
[2024-04-19] MEDS ORDERED: PROPOFOL 200 MG/20 ML VIAL ONE (15:17)
[2024-04-19] MEDS ORDERED: Ondansetron PF 4 MG/2 ML Vial ONE (15:17)
== END 2024-04-16 16:25 | disposition home or self-care (01) ==
LOC: SDC 10:57
PROVIDERS: ATTEND Orthopaedic Surgery Hand Surgery
DX: G56.03 Carpal tunnel syndrome, bilateral upper limbs (principal); G56.11 Other lesions of median nerve, right upper limb; S63.591A Other specified sprain of right wrist, initial encounter
CPT/HCPCS: 93005; 93010; J3010

== ENCOUNTER 2024-07-15 15:30 | Outpatient (CLI) | payer BC ==
[2024-07-15 16:17] LABS: #Basophils 0.03 10x3/uL (0.0-0.2); %Basophils 0.4 % (0.0-1.0); %Eosinophils 1.9 % (0.0-10.0); %Lymphocytes 37.5 % (21.0-51.0); %Monocytes 6.1 % (0.0-10.0); %Neutrophils 53.8 % (42.0-75.0); Hematocrit 37.6 % (36.0-47.0); Hemoglobin 12.4 g/dL (12.0-16.0); Mean Corpuscular Hemoglobin 29.1 pg (27.0-31.0); Mean Corpuscular Volume 88.3 fL (78.0-98.0); Platelet Count 248 10x3/uL (130-400); RBC Distribution Width 13.8 % (11.5-14.5); Red Blood Cell (RBC) Count 4.26 mill/uL (4.20-5.40)
== END 2024-07-15 15:31 | disposition home or self-care (01) ==
LOC: LABBT 15:30
PROVIDERS: ATTEND Orthopaedic Surgery Hand Surgery
DX: Z01.818 Encounter for other preprocedural examination (principal); S63.591A Other specified sprain of right wrist, initial encounter; T84.84XA Pain due to internal orthopedic prosthetic devices, implants and grafts, initial encounter; R21 Rash and other nonspecific skin eruption
CPT/HCPCS: 85025; 86141; 93005; 93010

== ENCOUNTER 2024-07-16 09:13 | Inpatient (IN) | payer BC ==
[2024-07-16] MEDS ORDERED: fentaNYL 50 mcg/mL 1 mL Vial ONE ×3 (10:51→14:51)
[2024-07-16] MEDS ORDERED: Dexmedetomidine 200 MCG/2 ML VIAL ONE (10:51)
[2024-07-16] MEDS ORDERED: Midazolam HCl 2 mg/2 ml Vial ONE (10:51)
[2024-07-16] MEDS ORDERED: CEFAZOLIN 2 GM VIAL ONE (10:55)
[2024-07-16] MEDS ORDERED: PROPOFOL 20 ML ONE (11:12)
[2024-07-16] MEDS ORDERED: Dexamethasone 20 MG/5 ML VIAL ONE (11:16)
[2024-07-16] MEDS ORDERED: Albuterol HFA (OR) 200 PUFF INH ONE ×2 (11:16→11:30)
[2024-07-16] MEDS ORDERED: Ondansetron PF 4 MG/2 ML Vial ONE (11:16)
[2024-07-16] MEDS ORDERED: Lidocaine 2% PF 5 ML VIAL ONE (11:20)
[2024-07-16] MEDS ORDERED: Ropivacaine 0.5% HCl/PF (150 MG/30 ML VIAL) ONE (11:30)
[2024-07-16] MEDS ORDERED: Glycopyrrolate 0.2 MG/ML 5 ML SYRINGE ONE (11:41)
[2024-07-16] MEDS ORDERED: Bupivacaine PF 0.5% 30 ML VIAL ONE (12:53)
[2024-07-16] MEDS ORDERED: PHENYLEPHRINE-NS 100 MCG/ML 10 ML SYRINGE ONE (12:58)
[2024-07-16] MEDS ORDERED: Thrombin 5000 UNITS/5 ML VIAL ONE (13:11)
[2024-07-16] MEDS ORDERED: Promethazine HCl 25 MG/ML VIAL IM PRN (14:28)
[2024-07-16] MEDS ORDERED: fentaNYL 50 mcg/mL 1 mL Vial SLOW IVP PRN (14:28)
[2024-07-16] MEDS ORDERED: Acetaminophen 325 MG TAB PO PRN (14:28)
[2024-07-16] MEDS ORDERED: traMADol HCl 50 MG TAB PO PRN (14:28)
[2024-07-16] MEDS ORDERED: ABX FS PRN (14:30)
[2024-07-16] MEDS ORDERED: Meperidine HCl/PF 25 MG (1 mL) VIAL IM PRN (14:32)
[2024-07-16] MEDS: HYDROcodone/Acetaminophen 5/325 mg Tablet PO PRN (17:21)
[2024-07-16] MEDS: Aspirin 81 mg Enteric Coated Tablet PO SCH (21:29)
[2024-07-16] MEDS: Vancomycin 1 GM in Premix 1 BAG IVPB SCH (21:29)
[2024-07-16] MEDS: Ondansetron PF 4 MG/2 ML Vial SLOW IVP PRN (21:44)
[2024-07-16] MEDS: TETANUS, DIPHTHERIA TOX,ADULT (TDVAX) 0.5 ML VIAL IM ONE (23:50)
[2024-07-17 05:56] LABS: #Basophils Less than 0.03 10x3/uL (0.0-0.2); #Eosinophils Less than 0.03 10x3/uL (0.0-0.7); %Basophils 0.1 % (0.0-1.0); %Lymphocytes 12.1 % (21.0-51.0); %Monocytes 4.2 % (0.0-10.0); %Neutrophils 83.1 % (42.0-75.0); Hematocrit 33.3 % (36.0-47.0); Hemoglobin 11.1 g/dL (12.0-16.0); Mean Corpuscular HGB CONC 33.3 g/dL (32.0-36.0); Mean Corpuscular Hemoglobin 29.1 pg (27.0-31.0); Mean Corpuscular Volume 87.2 fL (78.0-98.0); Mean Platelet Volume 10.9 fL (7.4-10.4); Platelet Count 248 10x3/uL (130-400); RBC Distribution Width 13.4 % (11.5-14.5); Red Blood Cell (RBC) Count 3.82 mill/uL (4.20-5.40)
[2024-07-17 06:26] LABS: ALT (SGPT) 12 U/L (Less than 34); AST (SGOT) 32 U/L (11-34); Albumin 3.5 g/dL (3.1-4.5); Alkaline Phosphatase 132 U/L (40-110); Anion Gap 12 mmol/L (10-20); BUN (Urea Nitrogen) 11 mg/dL (9.8-20.1); Bilirubin, Total 0.3 mg/dL (0.3-1.2); Calc. Creatinine Clearance 80 mL/min (70-130); Calcium 9.1 mg/dL (7.8-10.44); Carbon Dioxide 24 mmol/L (23-31); Chloride 107 mmol/L (98-107); Estimated GFR 100; Globulin 3.2 g/dL (2.4-3.5); Glucose 134 mg/dL (80-115); Potassium 4.1 mmol/L (3.5-5.1); Protein, Total 6.7 g/dL (5.8-8.1); Sodium 139 mmol/L (136-145)
[2024-07-17] MEDS: Morphine 4 MG/ML VIAL SLOW IVP PRN (08:34)
[2024-07-17 12:49] VITALS: BP 126/65; TEMP 98.2
[2024-07-17 16:37] VITALS: BMI 22.2
== END 2024-07-17 16:11 | disposition home or self-care (01) | DRG 493 ==
LOC: SDC 09:13 → SURG B 16:18
PROVIDERS: ADMIT Orthopaedic Surgery Hand Surgery; ATTEND Orthopaedic Surgery Hand Surgery
PROC: 0RPN04Z Removal of Internal Fixation Device from Right Wrist Joint, Open Approach (ICD-10-PCS; principal; 2024-07-16)
PROC: 0PSF04Z Reposition Right Humeral Shaft with Internal Fixation Device, Open Approach (ICD-10-PCS; 2024-07-16)
DX: T84.89XA Other specified complication of internal orthopedic prosthetic devices, implants and grafts, initial encounter (principal); S52.201K Unspecified fracture of shaft of right ulna, subsequent encounter for closed fracture with nonunion; R21 Rash and other nonspecific skin eruption; F41.9 Anxiety disorder, unspecified; F32.A Depression, unspecified; G89.29 Other chronic pain; I10 Essential (primary) hypertension; J44.9 Chronic obstructive pulmonary disease, unspecified; E78.5 Hyperlipidemia, unspecified; Y79.2 Prosthetic and other implants, materials and accessory orthopedic devices associated with adverse incidents
CPT/HCPCS: 36415; 80053; 85025; C1713; C1889; J0665; J1100; J2250; J2270; J2405; J2704; J2795; J3010; J3370

== ENCOUNTER 2025-01-29 09:36 | Outpatient (CLI) | payer MEDICARE, OTHER | END 2025-01-29 09:37 | disposition home or self-care (01) | LOC: ULT 09:36 | PROVIDERS: ATTEND Family Medicine | DX: R74.8 Abnormal levels of other serum enzymes (principal) | CPT/HCPCS: 76705 ==

== ENCOUNTER 2025-02-09 13:49 | Outpatient (CLI) | payer MEDICARE, OTHER | END 2025-02-09 13:50 | disposition home or self-care (01) | LOC: BICMAMMO 13:49 | PROVIDERS: ATTEND Family Medicine | DX: Z12.31 Encounter for screening mammogram for malignant neoplasm of breast (principal); Z78.0 Asymptomatic menopausal state; M85.89 Other specified disorders of bone density and structure, multiple sites | CPT/HCPCS: 77063; 77067; 77080 ==

== ENCOUNTER 2025-03-16 10:51 | Emergency (ER) | payer MEDICARE, OTHER ==
[2025-03-16] MEDS ORDERED: Pantoprazole 40 MG VIAL ONE (11:45)
[2025-03-16] MEDS ORDERED: Ondansetron PF 4 MG/2 ML Vial ONE (11:45)
[2025-03-16] MEDS ORDERED: Famotidine/PF 20 mg/2ml Vial ONE (11:45)
[2025-03-16 11:55] LABS: #Basophils 0.05 10x3/uL (0.0-0.2); #Eosinophils 0.08 10x3/uL (0.0-0.7); #Monocytes 0.57 10x3/uL (0.11-0.59); #Neutrophils 11.44 10x3/uL (1.40-6.50); %Basophils 0.3 % (0.0-1.0); %Eosinophils 0.6 % (0.0-10.0); %Lymphocytes 15.3 % (21.0-51.0); %Monocytes 4.0 % (0.0-10.0); %Neutrophils 79.5 % (42.0-75.0); Hematocrit 43.7 % (36.0-47.0); Hemoglobin 14.2 g/dL (12.0-16.0); Mean Corpuscular Hemoglobin 29.4 pg (27.0-31.0); Mean Corpuscular Volume 90.5 fL (78.0-98.0); Platelet Count 276 10x3/uL (130-400); Red Blood Cell (RBC) Count 4.83 mill/uL (4.20-5.40); White Blood Cell (WBC) Count 14.39 10x3/uL (4.8-10.8)
[2025-03-16 12:23] LABS: ALT (SGPT) 11 U/L (Less than 34); AST (SGOT) 21 U/L (11-34); Albumin 4.6 g/dL (3.1-4.5); Alkaline Phosphatase 150 U/L (40-110); Anion Gap 17 mmol/L (10-20); BUN (Urea Nitrogen) 7 mg/dL (9.8-20.1); Bilirubin, Total 0.4 mg/dL (0.3-1.2); Calc. Creatinine Clearance 0 mL/min (70-130); Calcium 9.9 mg/dL (7.8-10.44); Carbon Dioxide 24 mmol/L (23-31); Chloride 102 mmol/L (98-107); Globulin 3.5 g/dL (2.4-3.5); Glucose 110 mg/dL (80-115); Lipase 21 U/L (8-78); Magnesium 2.0 mg/dL (1.6-2.6); Potassium 3.4 mmol/L (3.5-5.1); Sodium 140 mmol/L (136-145)
[2025-03-16] MEDS ORDERED: Ketorolac Tromethamine 30 MG (1 mL) VIAL ONE (12:51)
[2025-03-16 14:00] LABS: Bacteria/HPF None Seen HPF (None Seen); CAUTI Indications for Culture Pelvic or flank pain; Glucose, Urine (Dipstick) Normal (Negative); Leukocyte Negative Leu/uL (Negative); Protein, Urine (Dipstick) Negative (Neg-Trace); RBC/HPF 0-3 HPF (0-3); Specific Gravity, Urine 1.050 (1.002-1.036); WBC/HPF 0-3 HPF (0-3)
[2025-03-16 14:08] LABS: Urine Culture Reflex No No
[2025-03-16] MEDS ORDERED: Iopamidol-370 76% 500 ML MDV (1 ML CHARGE) ONE (15:49)
== END 2025-03-16 14:36 | disposition home or self-care (01) ==
LOC: ERS 10:51
DX: R10.13 Epigastric pain (principal); I10 Essential (primary) hypertension; E87.6 Hypokalemia; E11.9 Type 2 diabetes mellitus without complications; F17.210 Nicotine dependence, cigarettes, uncomplicated; Z55.6 Problems related to health literacy
CPT/HCPCS: 74177; 80053; 81001; 83690; 83735; 84484; 85025; 93005; 96361; 96374; 96375; J1885; J2470; Q9967

== ENCOUNTER 2025-03-28 14:23 | Outpatient (CLI) | payer MEDICARE, OTHER | END 2025-03-28 14:24 | disposition home or self-care (01) | LOC: BICMRI 14:23 | PROVIDERS: ATTEND Orthopaedic Surgery Hand Surgery | DX: S62.154A Nondisplaced fracture of hook process of hamate [unciform] bone, right wrist, initial encounter for closed fracture (principal); S66.50 Unspecified injury of intrinsic muscle, fascia and tendon of other and unspecified finger at wrist and hand level ==